=== PATIENT | female | born 1995 | race Caucasian/White ===

== ENCOUNTER 2024-12-25 08:22 | Inpatient (IN) ==
[2024-12-25] MEDS ORDERED: CALCIUM CARBONATE 500 MG CHEWABLE TAB PO PRN (08:33)
--- NOTE | 2024-12-25 08:37 | History & Physical Report ---
Date of Service December 25, 2024 Assessment & Plan (1) Status post fall: Plan: patient is a 29-year-old -0-2-0 at 39 weeks of gestation who fell on ice onto her back and elbows this morning at 6 AM, has been leaking pinkish fluid since then, Vital signs stable afebrile,With elevated blood pressures, no symptoms, heart rate reassuring, Speculum exam confirmed spontaneous rupture of membranes, Schlusser with irregular contractions patient feels some of them, GBS negative, Plan to admit, monitor, labs, recommended augmentation of contractions with low- dose Pitocin per protocol due to spontaneous rupture of membranes at term, Start p.o. labetalol for elevated blood pressures while waiting for labs, Patient understands all and agrees with plan. (2) with 39 completed weeks gestation: (3) Spontaneous rupture of amniotic membranes: History of Present Illness Chief Complaint: fall Primary Care Provider: NO PCP Patient is a 29-year-old -0-2-0 at 39 weeks of gestation who presented to ER after a fall at 6 a.m. while she was going into her car for work. She is still at on ice and fell on her elbows and then gently on her buttocks. She has not hit her belly. She went into home and started to have pinkish mucousy discharge since then. She saw it on toilet paper as well as in the toilet with her urine. She has been leaking mucousy fluid since then. She also started to feel contractions every 10 to 20 minutes, since fall, pain level is 4 out of 10. Baby has been moving, active. Patient denies headaches, change in vision, nausea vomiting, epigastric or right upper quadrant pain, chest pain, shortness of breath, fever chills. Her has been uncomplicated, GBS negative. Allergies Allergy/AdvReac Type Severity Reaction Status Date / Time No Known Allergies Allergy Unverified 12/25/24 08:43 Home Medications Medication Instructions Recorded Confirmed Type calcium carbonate (Tums) 1 mg PO Q4 PRN Heartburn 12/25/24 12/25/24 History [id number] 1 mg 1 tab PO DAILY vitamin 12/25/24 12/25/24 History tablet Review of Systems as per Subjective / HPI Physical Exam Constitutional: WD/WN, vitals as above well developed, well nourished and comfortable Patient walked into labor and delivery without difficulty. Gastrointestinal (Abdomen): normal bowel sounds, soft, nontender, no hepatosplenomegaly ( Gravid) Genitourinary: normal external appearance Speculum/Bimanual Exam: normal appearance of the vagina ( Pooling pinkish fluid in upper vagina, nitrazine positive, AmniSure +) Manual OB Exam: + cervical dilation 1 cm, + cervical effacement 50% and + station -2 OB Exam Monitor Tracing: + external uterine monitor used and + category I NST reactive bedside ultrasound revealed vertex presentation, placenta anterior looks normal, LOU is 4.3 cm
[2024-12-25] MEDS ORDERED: LIDOCAINE 1% LOCAL 20 ML VIAL INFIL PRN (09:14)
[2024-12-25] MEDS ORDERED: OXYTOCIN 30 UNITS/NSS 30 UNITS/500 ML BAG IV PRN ×2 (09:14→21:03)
[2024-12-25 09:58] LABS: Hematocrit (blood only) 29.2 % (37.0-47.0); Hemoglobin 9.5 g/dl (12.0-16.0); Mean Corpuscular Hemoglobin 25.4 pg (25.0-34.0); Mean Corpuscular Hgb Conc 32.5 g/dL (32.0-36.0); Mean Corpuscular Volume 78.1 fL (80.0-100.0); Mean Platelet Volume 11.2 fL (9.4-12.4); Nucleated RBC # (auto) 0.05 K/uL (0.00-0.12); Nucleated RBC % (auto) 0.5 %; Platelet Count 289 K/uL (130-400); RDW Coefficient of Variation 14.7 % (11.5-14.5); RDW Standard Deviation 41.5 fL (36.4-46.3); Red Blood Count 3.74 M/uL (4.20-5.40); White Blood Count 10.72 K/ul (4.8-10.8)
[2024-12-25 10:10] LABS: Albumin Globulin Ratio 1.1 (0.9-2); Albumin Level 3.3 gm/dl (3.4-5.0); Bilirubin,Total 0.3 mg/dl (0.2-1.0); Calcium 8.7 mg/dl (8.6-10.3); Creatinine Clr Calc Pharmacy 180.7 ml/min; Globulin 2.9 gm/dl (2.5-4.0); Potassium 4.1 mmol/L (3.5-5.1); Total Protein 6.2 gm/dl (6.0-8.3)
[2024-12-25] MEDS: LABETALOL HCL 100 MG TAB PO ONE (10:10)
[2024-12-25] MEDS: LACTATED RINGER'S 1,000 ML IV PRN (10:13)
[2024-12-25] MEDS: OXYTOCIN 30 UNITS/NSS 30 UNITS/500 ML BAG IV PRN (10:17)
[2024-12-25 10:18] LABS: Creatinine Urine Random 75.5 mg/dl; Protein Creatinine Ratio Urine 0.8 (0-0.2); Total Protein Urine Random 61.7 mg/dl (0-11.9)
[2024-12-25 11:15] LABS: INR 0.9 (0.9-1.1); Partial Thromboplastin Ratio 0.9; Partial Thromboplastin Time 24 Seconds (21-31); Prothrombin Time 9.6 Seconds (9.0-12.0)
[2024-12-25 11:23] LABS: Fibrinogen 553 mg/dl (184-400)
[2024-12-25] MEDS ORDERED: ROPIVACAINE 0.5% PF 5 MG/ML 20 ML VIAL EPI PRN (12:28)
[2024-12-25] MEDS ORDERED: NALBUPHINE HCL INJ 10 MG/ML AMP IV PRN (12:28)
[2024-12-25] MEDS ORDERED: NALOXONE HCL 1 MG in SODIUM CHLORIDE 0.9% 1,000 ML IV PRN (12:28)
[2024-12-25] MEDS ORDERED: ePHEDrine sulfate 50 MG/ML AMP IV PRN (12:28)
[2024-12-25] MEDS ORDERED: SODIUM CHLORIDE 0.9% PF INJ 10 ML VIAL EPI PRN (12:28)
[2024-12-25] MEDS ORDERED: diphenhydrAMINE 50 MG/ML VIAL IV PRN (12:28)
[2024-12-25] MEDS ORDERED: NALOXONE HCL 0.4 MG/1 ML VIAL/CARP IV PRN (12:28)
[2024-12-25] MEDS ORDERED: LIDOCAINE 2% MPF LOCAL 5 ML VIAL EPI PRN (12:28)
--- NOTE | 2024-12-25 12:28 | Anesthesiology Consultation ---
Date of Service December 25, 2024 Assessment & Plan (1) Encounter for pre-operative examination: Chart Review Chart Review: Patient NOT seen in Pre Admission Testing and Acceptable Risk for Labor Epidural Consults Requested none History Height/Weight Height: 5 ft 5 in Weight: 88.451 kg Allergies Allergy/AdvReac Type Severity Reaction Status Date / Time No Known Allergies Allergy Unverified 12/25/24 08:43 Medications Home Medications Medication Instructions Recorded Confirmed Last Taken calcium carbonate (Tums) 1 mg PO Q4 PRN Heartburn 12/25/24 12/25/24 12/24/24 21:00 [id number]-Em-FA 1 mg 1 tab PO DAILY vitamin 12/25/24 12/25/24 11/24/24 07:00 tablet Active Medications Generic Name Dose Route Start Last Admin Trade Name Freq PRN Reason Stop Dose Admin Lactated Ringer's 1,000 mls @ 125 mls/hr 12/25/24 09:14 12/25/24 10:13 Lr IV 12/26/24 09:13 125 mls/hr .Q8H PRN Administration L&D Protocol Protocol Oxytocin 30 units in 500 mls @ 8 mls/hr 12/25/24 09:22 12/25/24 12:00 Pitocin 30 Units/Nss IV 12/27/24 09:21 0.48 units/hr .Q24H PRN 8 mls/hr Labor Induction/Augmentation Titration Protocol 0.48 UNITS/HR Social History Smoking Status: Former smoker Hx Alcohol Use: Yes Alcohol type: wine alcohol intake frequency: holidays/special occasions only Hx Substance Use: No substance use type: does not use Physical Exam Vital Signs Last Vital Signs Temp 98.2 F 12/25/24 12:05 Pulse 85 12/25/24 12:26 Resp 18 12/25/24 12:05 BP 141/91 H 12/25/24 12:18 Pulse Ox 98 12/25/24 12:26 Testing Laboratory Results 12/25/24 09:33 12/25/24 09:33 PT 9.6 Seconds (9.0-12.0) 12/25/24 09:33 INR 0.9 (0.9-1.1) 12/25/24 09:33 APTT 24 Seconds (21-31) 12/25/24 09:33 Blood Type A Positive 12/25/24:33 Antibody Screen NEGATIVE 12/25/24:33
[2024-12-25] MEDS: LIDOCAINE 2%/EPINEPHRINE 1:200,000 20 ML PF ONE (12:40)
[2024-12-25] MEDS: BUPIVACAINE 0.25% PF 30 ML VIAL ONE (12:40)
[2024-12-25] MEDS: fentaNYL citrate PF 100 MCG/2 ML VIAL ONE (12:40)
[2024-12-25] MEDS: fentANYL 2 MCG/ML BUPIVacaine 0.125%-NSS 100ML BAG ONE (12:46)
[2024-12-25] MEDS: SODIUM CHLORIDE 0.9% PF INJ 10 ML VIAL EPI STA (13:00)
[2024-12-25] MEDS: LIDOCAINE 2%/EPINEPHRINE 1:200,000 20 ML PF EPI STA (13:00)
[2024-12-25] MEDS: fentaNYL citrate PF 100 MCG/2 ML VIAL EPI STA (13:01)
[2024-12-25] MEDS: SODIUM CHLORIDE 0.9% PF INJ 10 ML VIAL ONE (13:01)
[2024-12-25] MEDS: BUPIVACAINE 0.25% PF 30 ML VIAL EPI STA (13:01)
--- OUTSIDE RECORDS SUMMARY | 2024-12-25 13:31 | External Medical Summary | Summary of Care ---
Author Name Unknown Organization [facility] [address] [facility] [facility] [address] Phone [phone] Care Team Providers Care Shot Core Drill Operator Name Role Phone Unavailable Primary Care Provider Unavailabl e Reason for Visit * Reason Comments Return Visit Encounter Details Date Type Department Care Team (Late st Contact Info) Description 12/07/2024 10:30 AM EST Office Visit Gynecology/Obstetri crystal Neves [address] [facility] [place] [address] Margoth Ernst PA-C [address] [place] [phone] Nurse [facility] [place] [address] [place] [address] Encounter for supervision of other normal , unspecified trimester*; Health counseling Allergies No known active allergiesdocumented as of this encounter (statuses as of 12/07/2024) Medications Prochlorperazine Maleate 5 MG Oral Tablet (Compazine) TAKE 1 TAB BY MOUTH 3 TIMES DAILY NEEDED FOR NAUSEA/VOMITING . 06/07/20 24 Active Forte Oral Tablet Take by mouth. Act allan Ondansetron 4 MG Oral Tablet Disintegrating (Zofran) Place 1 Tablet on tongue every 8 hours as needed for Nausea. dissolve on tongue. 40 Tablet 2 06/28/20 24 Active Promethazine HCl 25 MG Rectal Suppository (Phenergan)Indicat ions:Nausea and vomiting during Administer 1 Suppository into the rectum every 6 hours as needed for Nausea. 12 Each 07/14/20 Active Additional Information Patient not taking.Reported on 08/11/2024 Vitamin B-6 50 MG Oral Tablet Take 0.5 Tablets by mouth 3 times a day as needed for Nausea. 30 Tablet 3 07/14/20 24 Active documented as of this encounter (statuses as of 12/07/2024) Active Problems Problem Noted Date Diagnosed Date Food insecurity 08/28/2024 Overview: Per [facility] Protocol Health counseling 08/11/2024 Overview (12/07/2024): Problem Action Taken Date entered Entered by Date resolved Need for food assistance referred to [facility] and local food crocker 08/11/2024 Olivia Schultz RN 08/11/2024 Problem Action Taken Date entered Entered by Date resolved Current needs or questions Patient denies having any current needs or questions 09/13/2024 Allison Alexander RN 09/13/2024 Problem Action Taken Date entered Entered by Date resolved Third trimester Education complete 10/17/2024 Kath Simon RN 10/17/2024 Problem Action Taken Date entered Entered by Date resolved Current needs or questions Patient denies having any current needs or questions 11/09/2024 Allison Alexander RN 11/09/2024 Problem Action Taken Date entered Entered by Date resolved Current needs or questions Patient denies having any current needs or questions 11/24/2024 Allison Alexander RN 11/24/2024 Problem Action Taken Date entered Entered by Date resolved Current needs or questions Patient denies having any current needs or questions 12/07/2024 Allison Alexander RN 12/07/2024 Encounter for supervision of other normal , unspecified trimester 06/13/2024 Health counseling 06/13/2024 Assessment & Plan (06/13/2024 4:32 PM EDT): Problem Action Taken Date entered Entered by Date resolved Dental care Encouraged routine visits 06/13/2024 Allison Alexander RN 06/13/2024 nutrition Due date letter given for WIC 06/13/2024 Allison Alexander RN 06/13/2024 Transportation (states car could break down at any point) [facility] transport discussed 06/13/2024 Allison Alexander RN 06/13/2024 Problem Action Taken Date entered Entered by Date resolved 1st Referral sent to [facility] 06/13/2024 Allison Alexander RN 06/13/2024 Estimated Date of Delivery Comme nts Yes 01/01/2025 Based on last me nstrual period of 03/27/2024 (Exact Date) documented as of this encounter (statuses as of 12/07/2024) Social History Tobacco Use Types Packs/Day Years Used Date Smoking Tobacco: Former Cigarettes Smokeless Tobacco: Never Alcohol Use Standard Drinks/Week Comments Not Currently 0 (1 standard drink = 0.6 oz pur e alcohol) Hunger Vital Sign Answer Date Recorded Within the past 12 months, y ou worried that your food would run out before you got the money to buy more. Sometimes true Within the past 12 months, t he food you bought just didn't last and you didn't have money to get more. Sometimes true [place] Depression Scale Answer Date Recorded [place] Depression Scale Total 6 11/09/2024 The thought of harming myself has occurred to me . Never 11/09/2024 Childcare Answer Date Recorded Do you feel overwhelmed with taking care of a child, family member or friend? No 07/31/2024 Does your family need help f inding childcare? (Household - for ages 0-17 years) Not on file 07/31/2024 Clothing Answer Date Recorded Have you been unable to get clothing when it was really needed? No 07/31/2024 Is your family able to get c lothes or diapers when needed? (Household - for ages 0-17 years) Not on file 07/31/2024 Personal Safety Answer Date Recorded Do you feel unsafe or have concerns for your saf ety? No 07/31/2024 Do you have concerns for you r family's safety? (Household - for ages 0-17 years) Not on file 07/31/2024 Utilities Answer Date Recorded Do you have trouble paying y our heating, water, or electric bill? No 07/31/2024 Is your family able to pay t he heat, water, or electric bill? (Household - for ages 0-17 years) Not on file 07/31/2024 Does your family have access to good internet? (Household - for ages 0-17 years) Not on file 07/31/2024 Employment Status Answer Date Recorded Are you unemployed or without regular income? No 07/31/2024 Does the household have a re gular source of income? (Household - for ages 0-17 years) Not on file 07/31/2024 Social Connections Answer Date Recorded How often do you feel lonely or isolated from th ose around you? Rarely 07/31/2024 Financial Resource Strain Answer Date R ecorded Do you have any trouble payi ng for your medications, or do you think you might in the future? No 07/31/2024 Does your family have troubl e paying for medicine? (Household - for ages 0-17 years) Not on file 07/31/2024 Transportation Needs Answer Date Record ed Do you have trouble getting a ride to medical visits or work? (Adult - for ages 18 years and over) Not on file 07/31/2024 Does your family have a hard time getting a ride to doctors visits? (Household - for ages 0-17 years) Not on file 07/31/2024 Has lack of transportation k ept you from medical appointments, meetings, work, or from getting things needed for daily living? Check all that apply. No 07/31/2024 Do you (or your family) have trouble finding or paying for a ride (transportation)? (Household - for ages 0-17 years) Not on file 07/31/2024 Housing Stability Answer Date Recorded Do you currently live in a s helter or have no steady place to sleep at night? No 07/31/2024 Do you think you are at risk of becoming homeless? (Adult - for ages 18 years and over) Not on file 07/31/2024 Does your family worry about paying for your home or becoming homeless? (Household - for ages 0-17 years) Not on file 0 07/31/2024 Are you homeless or worried that you might be in the future? No 07/31/2024 Are you (or your family) kaitlynn eless or worried that you might be in the future? (Household - for ages 0-17 years) Not on file Food Insecurity Answer Date Recorded Do you need food for this week? No 07/31/2024 Are you able to get enough f ood for your family? (Household - for ages 0-17 years) Not on file 07/31/2024 Does your family need food t his week? (Household - for ages 0-17 years) Not on file 07/31/2024 Do you always have enough fo od for your family? (Household - for ages 0-17 years) Not on file 07/31/2024 Estimated Date of Delivery Comme nts Yes 01/01/2025 Based on last me nstrual period of 03/27/2024 (Exact Date) Sex and Gender Information Value Date Recorded Sex Assigned at Female 05/18/2024 4:34 PM EDT Legal Sex Female 7:18 AM EST Gender Identity Female 05/18/2024 4:34 PM EDT Sexual Orientation Straight 05/18/2024 4: 34 PM EDT documented as of this encounter Last Filed Vital Signs Vital Sign Reading Time Taken Comments Blood Pressure 116/68 12/07/2024 10:59 AM EST Pulse - - Temperature - - Respiratory Rate - - Oxygen Saturation - - Inhaled Oxygen Concentration - - Weight - - Height - - Body Mass Index - - documented in this encounter Progress Notes * Margoth Ernst PA-C - 12/07/2024 11:13 AM EST Kendra Kumar is a 29 year old female here for her routine OB appointment at 36w3d Her Estimated Date of Delivery: 01/01/25 REVIEW OF SYSTEMS She affirms movement. Denies vaginal bleeding, LOF, contractions, chest pain, RUQ pain. PHYSICAL EXAM Filed Vitals: 12/07/24 1059 BP: 116/68 +FHT 150s. Acceleration auscultated into the 170s, lasting 30 seconds with return to baseline. Fundal height 36 cm Position: cephalic GBS swab collected. Director Of Field Coordination Documentation Patient offered barrel endshaker adjuster and accepted. Name of barrel endshaker adjuster: Corina Ann LPN. ASSESSMENT/PLAN Encounter for supervision of other normal , unspecified trimester (Primary) - GROUP B STREP CULTURE/PCR; Future; Expected date: 12/07/2024 Health counseling Supervision of - GBS swab collected today - labor precautions and kick counts reviewed RTO in 1 week Margoth Ernst PA-C 12/07/2024 documented in this encounter Nursing Notes * Allison Alexander RN - 12/07/2024 11:06 AM EST Patient seen by [facility] Hand Assembler. * Jennifer Emmanuel LPN - 12/07/2024 10:58 AM EST 36w3d Needs gbs today documented in this encounter Plan of Treatment Upcoming Encounters Date Type Department Care Team (Late st Contact Info) Description 12/14/2024 2:45 PM EST Office Visit Gynecology/Obstetrics Shawn Neves [address] [place] [phone] Alvin Hutton MD [address] [place] [phone] Nurse [facility] [place] [address] [place] [phone] Pending Results Name Type Priority Associated Diagnoses Date /Time GROUP B STREP CULTURE/PCR Lab Routine Encounter for supervision of other normal , unspecified trimester 12/07/2024 11:34 AM EST Scheduled Orders Name Type Priority Associated Diagnoses Orde r Schedule GROUP B STREP CULTURE/PCR Lab Routine Encounter for supervision of other normal , unspecified trimester Expected: 12/07/2024, Expires: 12/07/2025 Health Maintenance Due Date Last Done Comments Depression Screening 2006 Hepatitis B Vaccine (1 of 3 - 19+ 3-dose series) 2013 DTap/Tdap Vaccines (2 - Td o r Tdap) 10/12/2021 10/12/2011 COVID-19 Vaccine (1 - 2023-2 5 season) 2024 Influenza Vaccine (FLU shot) (#1) 2024 HPV/Co-Test 2024 Cervical Cancer Screening 06/13/2027 Pap Smear 06/13/2027 06/13/2024 HPV (Gardasil) Vaccine Aged Out No lo nger eligible based on patient's age to complete this topic MENINGOCOCCAL (MENACTRA/MENVEO) Aged Out No longer eligible based on patient's age to complete this topic Pneumococcal Vaccine: Pediat rics (0 to 5 Years) and At-Risk Patients (6 to 18 Years and 19+ Years) Aged Out No longer eligible b ased on patient's age to complete this topic documented as of this encounter Goals Goal Patient Goal Type Associated Problems Recent Progress Patient-Stated? Author Reminders Care Plan OB Reminders No Mychart, Provider documented as of this encounter Medical Devices Not on filedocumented as of this encounter Visit Diagnoses Diagnosis Encounter for supervision of other normal in first trimester- Primary Nausea and vomiting during Encounter for supervision of other normal , unspecified trimester- Primary Health counseling Other specified counseling documented in this encounter Additional Health Concerns Active Problems Noted Date Diagnosed Date OB Reminders 09/13/2024 documented as of this encounter
--- OUTSIDE RECORDS SUMMARY | 2024-12-25 13:31 | External Medical Summary | Summary of Care ---
Author Name Unknown Organization [facility] Address [address] [facility] [address] Phone [phone] Care Team Providers Care Roll Tension Tester Name Role Phone Unavailable Primary Care Provider Unavailabl e Encounter Details Date Type Department Care Team (Late st Contact Info) Description 12/15/2024 Population Health External Data Unspecified Department Allergies No known active allergiesdocumented as of this encounter (statuses as of 12/15/2024) Medications Prochlorperazine Maleate 5 MG Oral Tablet (Compazine) 06/07/20 24 Active Forte Oral Tablet Take [...] as needed for Nausea. 12 Each 07/14/20 24 Active Vitamin B-6 50 MG Oral Tablet Take 0.5 Tablets by mouth 3 times a day as needed for Nausea. 30 Tablet 3 07/14/20 24 Active documented as of this encounter (statuses as of 12/15/2024) Active Problems Problem Noted Date Diagnosed Date Food insecurity 08/28/2024 Overview: Per [facility] Protocol Health counseling 08/11/2024 Overview (12/14/2024): Problem Action Taken Date entered Entered by Date resolved Need for food assistance referred to [facility] and local food crocker 08/11/2024 Olivia Schultz, DHARA 08/11/2024 Problem Action Taken Date entered Entered [...] or questions 12/07/2024 Allison Alexander RN 12/07/2024 Problem Action Taken Date entered Entered by Date resolved Current needs or questions Patient denies having any current needs or questions 12/14/2024 Juancarlos Bedoya, DHARA 12/14/24 Encounter for supervision of other normal , unspecified trimester 06/13/2024 Health counseling 06/13/2024 Assessment & Plan (06/13/2024 4:32 PM EDT): Problem Action Taken Date entered Entered by Date resolved Dental care Encouraged routine visits 06/13/2024 Allison Alexander RN 06/13/2024 nutrition Due date letter given for [place] 06/13/2024 Allison Alexander RN 06/13/2024 Transportation (states car could break down at any point) [facility] transport discussed 06/13/2024 Allison Alexander RN 06/13/2024 Problem Action Taken Date entered Entered by Date resolved 1st Referral sent to [facility] 06/13/2024 Allison Alexander RN 06/13/2024 Estimated Date of Delivery Comme nts Yes 01/01/2025 Based on last me nstrual period of 03/27/2024 (Exact Date) documented as of this encounter (statuses as of 12/15/2024) Social History Tobacco Use Types Packs/Day Years [...] have money to get more. Sometimes true [place] Depression Scale Answer Date Recorded [place] Depression Scale Total 6 11/09/2024 The thought [...] PM EDT documented as of this encounter Plan of Treatment Upcoming Encounters Date Type Department Care Team (Late st Contact Info) Description 12/21/2024 10:30 AM EST Office Visit Gynecology/Obstetrics Shawn Neves [address] [place] [phone] Alonzo Groves MD [address] [employer] [place] [phone] Nurse [facility] [address] [place] [phone] Health Maintenance Due Date Last Done Comments [...] Patient-Stated? Author Reminders Care Plan OB Reminders Opal Askew Provider documented as of this encounter Medical Devices Not on filedocumented as of this encounter Additional Health Concerns Active Problems Noted Date Diagnosed Date OB Reminders 09/13/2024 documented as of this encounter
--- OUTSIDE RECORDS SUMMARY | 2024-12-25 13:31 | External Medical Summary ---
Author Name Unknown Address Unknown Organization K01:[facility] [address] [place] [address] Laboratory Report Ordering Provider Test Date Status NOEL HUGHES 12/07/2024 11:34:40 Final Observation Date Value Abnormality Reference (Units ) Status Streptococcus agalactiae DNA [Presence] in Specimen by DARLINE with probe detection 12/07/2024 11:34:40 Negative Negative Final No Group B Streptococcus det ected by culture-enhanced PCR (amplified probe). GBS GBSCT - [facility] 12/07/2024 11:34:40 0.0 Final GBS SPCCT - [facility] 12/07/2024 11:34:40 31.7 Final Performing Location [facility] [address] [place] [place] [address]
--- OUTSIDE RECORDS SUMMARY | 2024-12-25 13:31 | External Medical Summary | Summary of Care ---
Author Name Unknown Organization [facility] Address [address] [facility] [address] Phone [phone] Care Team Providers Care Systems Manager Name Role Phone Unavailable Primary Care Provider Unavailabl e Reason for Visit * Reason Comments Return Visit Encounter Details Date Type Department Care Team (Late st Contact Info) Description 12/07/2024 10:30 AM EST Office Visit Gynecology/Obstetri crystal Neves [address] [facility] [place] [address] Margoth Ernst PA-C [address] [place] [address] Nurse [facility] [place] [address] [place] [address] Encounter for supervision of other normal , [...] resolved Need for food assistance referred to [facility] and local food crocker 08/11/2024 Olivia Schultz [...] have money to get more. Sometimes true [place] Depression Scale Answer Date Recorded [place] Depression Scale Total 6 11/09/2024 The thought [...] 36 cm Position: cephalic GBS swab collected. Bd Special Education Teacher Documentation Patient offered supervisor border department and accepted. Name of supervisor border department: Corina Ann LPN. ASSESSMENT/PLAN Encounter for supervision [...] 12/07/2024 11:06 AM EST Patient seen by [facility] Insurance Claims Representative. * Jennifer Emmanuel LPN - 12/07/2024 10:58 AM EST 36w3d Needs gbs today documented in this encounter Plan of Treatment Upcoming Encounters Date Type Department Care Team (Late st Contact Info) Description 12/14/2024 2:45 PM EST Office Visit Gynecology/Obstetrics Shawn Neves [address] [place] [phone] Alvin Hutton MD [address] [place] [address] Nurse [facility] [place] [address] [place] [phone] Pending Results Name Type Priority Associated Diagnoses [...]
--- OUTSIDE RECORDS SUMMARY | 2024-12-25 13:31 | External Medical Summary | Summary of Care ---
Author Name Unknown Organization [facility] Address [address] [place] [address] Phone [phone] Care Team Providers Care Coal Unloader Name Role Phone Unavailable Primary Care Provider Unavailabl e Encounter Details Date Type Department Care Team (Late st Contact Info) Description 12/04/2024 Population Health External Data Unspecified Department Allergies No known active allergiesdocumented as of this encounter (statuses as of 12/04/2024) Medications Prochlorperazine Maleate 5 MG Oral Tablet [...] as of this encounter (statuses as of 12/04/2024) Active Problems Problem Noted Date Diagnosed Date Food insecurity 08/28/2024 Overview: Per [facility] Protocol Health counseling 08/11/2024 Overview (11/24/2024): Problem Action Taken Date entered Entered by Date resolved Need for food assistance referred to [facility] and local food crocker 08/11/2024 Olivia Schultz, [...] or questions 11/24/2024 Allison Alexander RN 11/24/2024 Encounter for supervision of other normal , unspecified trimester 06/13/2024 Health counseling 06/13/2024 Assessment & Plan (06/13/2024 4:32 PM EDT): Problem Action Taken Date entered Entered by Date resolved Dental care Encouraged routine visits 06/13/2024 Allison Alexander RN 06/13/2024 nutrition Due date letter given for [facility] 06/13/2024 Allison Alexander RN 06/13/2024 Transportation (states car could break down at any point) [facility] transport discussed 06/13/2024 Allison Alexander RN 06/13/2024 Problem Action Taken Date entered Entered by Date resolved 1st Referral sent to [facility] 06/13/2024 Allison Alexander RN 06/13/2024 Estimated Date of Delivery Comme nts Yes 01/01/2025 Based on last me nstrual period of 03/27/2024 (Exact Date) documented as of this encounter (statuses as of 12/04/2024) Social History Tobacco Use Types Packs/Day Years [...] have money to get more. Sometimes true [place] Depression Scale Answer Date Recorded [place] Depression Scale Total 6 11/09/2024 The thought [...] Description 12/07/2024 10:30 AM EST Office Visit Gynecology/Obstetrics [facility] [address] [place] [phone] Margoth Ernst PA-C [address] [place] [address] Nurse [facility] Return Bryan [address] [place] [address] Health Maintenance Due Date Last Done Comments Depression Screening 2006 Hepatitis B Vaccine (1 of 3 - 19+ 3-dose series) 2013 DTap/Tdap Vaccines (2 - Td o r Tdap) 10/12/2021 10/12/2011 COVID-19 Vaccine ( - 2023-2 5 season) 2024 Influenza Vaccine [...]
--- OUTSIDE RECORDS SUMMARY | 2024-12-25 13:31 | External Medical Summary | Summary of Care ---
Author Name Unknown Organization [facility] Address [address] [facility] [place] [address] Phone [phone] Care Team Providers Care Operations Management Trainee Name Role Phone Unavailable Primary Care Provider Unavailabl e Reason for Visit * Reason Comments Return Visit Encounter Details Date Type Department Care Team (Late st Contact Info) Description 12/14/2024 2:45 PM EST Office Visit Gynecology/Obstetri crystal Neves [address] [facility] [place] [address] Alvin Hutton MD [address] [place] [address] Nurse [facility] Return Bryan [address] [place] [address] Encounter for supervision of other normal , [...] resolved Need for food assistance referred to [facility] and local food crocker 08/11/2024 Olivia Schultz [...] car could break down at any point) [facility] transport discussed 06/13/2024 Allison Alexander RN 06/13/2024 [...] have money to get more. Sometimes true [place] Depression Scale Answer Date Recorded [place] Depression Scale Total 6 11/09/2024 The thought [...] Sign Reading Time Taken Comments Blood Pressure 120/70 12/14/2024 2:49 PM EST Pulse - - Temperature - - Respiratory Rate - - Oxygen Saturation - - Inhaled Oxygen Concentration - - Weight 88.5 kg (195 lb) 12/14/2024 2:49 PM EST Height 165.1 cm (5' 5") 12/14/2024 2:49 PM EST Body Mass Index 32.45 12/14/2024 2:49 PM EST documented in this encounter Progress Notes * Alvin Hutton MD - 12/14/2024 2:55 PM EST Pt doing well No complaints RTC 1 week * Jennifer Emmanuel LPN - 12/14/2024 2:49 PM EST 37w3d Denies any concerns documented in this encounter Nursing Notes * Juancarlos Bedoya RN - 12/14/2024 3:00 PM EST Patient seen by [facility] Machine Inspector. Patient denies any questions or concerns. documented in this encounter Plan of Treatment Upcoming Encounters Date Type Department Care Team (Late st Contact Info) Description 12/21/2024 10:30 AM EST Office Visit Gynecology/Obstetrics Shawn Neves [address] [place] [address] Alonzo Groves MD [address] [place] [phone] Nurse [facility] Return Bryan [address] [place] [address] Health Maintenance Due Date Last Done Comments Depression Screening 2006 Hepatitis B Vaccine (1 of 3 - 19+ 3-dose series) 2013 DTap/Tdap Vaccines (2 - Td o r Tdap) 10/12/2021 10/12/2011 COVID-19 Vaccine (2023-2 5 season) 2024 Influenza Vaccine (FLU shot) [...]
--- OUTSIDE RECORDS SUMMARY | 2024-12-25 13:31 | External Medical Summary | Summary of Care ---
Author Name Unknown Organization [facility] Address [address] [facility] [address] Phone [phone] Care Team Providers Care Furnace Operator Name Role Phone Unavailable Primary Care Provider Unavailabl e Encounter Details Date Type Department Care Team (Late st Contact Info) Description 12/11/2024 Telephone Gynecology/Obstetrics [facility] [address] [place] [address] Margoth Ernst PA-C [address] [place] [phone] Allergies No known active allergiesdocumented as of this encounter (statuses as of 12/20/2024) Medications Prochlorperazine Maleate 5 MG Oral Tablet [...] as of this encounter (statuses as of 12/20/2024) Active Problems Problem Noted Date Diagnosed Date Food insecurity 08/28/2024 Overview: Per [facility] Protocol Health counseling 08/11/2024 Overview (12/14/2024): Problem Action Taken Date entered Entered by Date resolved Need for food assistance referred to [facility] and local food crocker 08/11/2024 Olivia [...] 06/13/2024 nutrition Due date letter given for [facility] 06/13/2024 Allison Alexander RN 06/13/2024 Transportation (states car could break down at any point) [facility] transport discussed 06/13/2024 Allison Alexander RN 06/13/2024 Problem Action Taken Date entered Entered by Date resolved 1st Referral sent to [facility] 06/13/2024 Allison Alexander RN 06/13/2024 Estimated Date of Delivery Comme nts Yes 01/01/2025 Based on last me nstrual period of 03/27/2024 (Exact Date) documented as of this encounter (statuses as of 12/20/2024) Social History Tobacco Use Types Packs/Day Years [...] have money to get more. Sometimes true [place] Depression Scale Answer Date Recorded [place] Depression Scale Total 6 11/09/2024 The thought [...] PM EDT documented as of this encounter Miscellaneous Notes * Telephone Encounter - Corina Ann LPN - 12/11/2024 10:00 AM EST ----- Message from Margoth Ernst sent at 12/11/2024 8:00 AM EST ----- Please inform patient her GBS culture resulted negative. Thanks! Margoth Ernst PA-C documented in this encounter Plan of Treatment Upcoming Encounters Date Type Department Care Team (Late st Contact Info) Description 12/21/2024 10:30 AM EST Office Visit Gynecology/Obstetrics Shawn Neves [address] [place] [phone] Alonzo Groves MD [address] [place] [phone] Nurse [facility] Return Bryan [address] [place] [address] Health Maintenance Due Date Last Done Comments [...] Author Reminders Care Plan OB Reminders No Jamilah, Provider documented as of this encounter Medical Devices Not on filedocumented as of this encounter Additional Health Concerns Active Problems Noted Date Diagnosed Date OB Reminders 09/13/2024 documented as of this encounter
--- NOTE | 2024-12-25 13:32 | Obstetrical Progress Note ---
Date of Service December 25, 2024 Assessment & Plan Admission and Anticipated Discharge Date Admission Date: December 25, 2024 Subjective Patient is reevaluated. She received epidural for pain. Still awaiting for complete relief of pain. heart rate category 1, Dunn[place] with contractions every 2 to 3 minutes, oxytocin is at 10 milliunits/min, Vaginal exam, cervix is 3 to 4 cm dilated, 80%, head at -2, Continue to monitor closely. Results & Data Vital Signs (Past 12 Hours) Vital Signs Temp Pulse Resp BP Pulse Ox 12/25/24 13:26 97 12/25/24 13:26 76 12/25/24 13:21 97 12/25/24 13:21 81 12/25/24 13:21 144/82 H 12/25/24 13:16 96 12/25/24 13:16 87 12/25/24 13:11 97 12/25/24 13:11 90 12/25/24 13:06 94 12/25/24 13:06 88 12/25/24 13:05 16 12/25/24 13:05 36.7 C 16 12/25/24 13:04 83 12/25/24 13:04 141/83 H 12/25/24 13:01 94 12/25/24 13:01 83 12/25/24 13:00 94 12/25/24 13:00 86 12/25/24 12:56 96 12/25/24 12:56 81 12/25/24 12:51 98 12/25/24 12:51 89 12/25/24 12:47 83 12/25/24 12:47 131/75 12/25/24 12:46 98 12/25/24 12:46 80 12/25/24 12:44 77 12/25/24 12:44 135/82 12/25/24 12:43 78 12/25/24 12:43 143/78 H 12/25/24 12:41 99 12/25/24 12:41 83 12/25/24 12:41 80 12/25/24 12:41 140/78 12/25/24 12:36 99 12/25/24 12:36 105 H 12/25/24 12:31 100 12/25/24 12:31 86 12/25/24 12:26 98 12/25/24 12:26 85 12/25/24 12:18 36.7 C 12/25/24 12:18 93 H 12/25/24 12:18 141/91 H 12/25/24 12:05 18 12/25/24 12:05 36.8 C 18 12/25/24 11:03 75 12/25/24 11:03 145/89 H 12/25/24 11:02 80 12/25/24 11:02 160/96 H 12/25/24 11:00 18 12/25/24 11:00 36.8 C 18 12/25/24 10:09 18 12/25/24 10:09 36.8 C 18 12/25/24 10:09 75 12/25/24 10:09 139/97 12/25/24 09:20 36.8 C 78 18 139/97 12/25/24 09:12 77 12/25/24 09:12 156/86 H 12/25/24 09:05 87 12/25/24 09:05 149/82 H 12/25/24 09:04 78 12/25/24 09:04 181/85 H 12/25/24 08:53 77 12/25/24 08:53 163/102 H 12/25/24 08:38 78 139/97
--- OUTSIDE RECORDS SUMMARY | 2024-12-25 13:32 | External Medical Summary ---
Author Name Unknown Address Unknown Organization [id number]:LABORATORY [facility] [place] - [facility] [address] [facility] [address] [facility] [address] Laboratory Report Ordering Provider Test Date Status SLAVA HIGGINS 10/17/2024 10:06:53 Final Observation Date Value Abnormality Reference (Units ) Status Retic, % (auto) 10/17/2024 10:06:53 1.08 0.80-1.90 (%) Final Reticulocytes, Absolute 10/17/2024 10:06:53 41.6 31.3-100.1 (K/uL) Final Reticulocyte fraction, immature 10/17/2024 10:06:53 18.3 2.5-20.6 (%) Final Reticulocyte HGB 10/17/2024 10:06:53 26.2 Below low normal 29.7-37.4 (pg) Final Performing Location LABORATORY [facility] [place] - [address] [facility] [address]
--- OUTSIDE RECORDS SUMMARY | 2024-12-25 13:32 | External Medical Summary ---
Author Name Unknown Address Unknown Organization [id number]:[place] [place] [address] [facility] [address] Laboratory Report Ordering Provider Test Date Status SLAVA HIGGINS 10/17/2024 10:06:53 Final Observation Date Value Abnormality Reference (Units ) Status Folic Acid 10/17/2024 10:06:53 11.9 >4.5 (ng/ mL) Final Performing Location [facility] [place] [address] [facility] [address]
--- OUTSIDE RECORDS SUMMARY | 2024-12-25 13:32 | External Medical Summary ---
Author Name Unknown Address Unknown Organization [id number]:[facility] [facility] [place] [address] [place] [address] Laboratory Report Ordering Provider Test Date Status SLAVA HIGGINS 10/17/2024 10:06:53 Final Observation Date Value Abnormality Reference (Units ) Status Vitamin B12 10/17/2024 10:06:53 982 [id number] (pg/mL) Final Performing Location [facility] [place] [address] [place] [address]
--- OUTSIDE RECORDS SUMMARY | 2024-12-25 13:32 | External Medical Summary | Summary of Care ---
Author Name Unknown Organization [facility] Address [address] [place] [address] Phone [phone] Care Team Providers Care Systems Lead Name Role Phone Unavailable Primary Care Provider Unavailabl e Encounter Details Date Type Department Care Team (Late st Contact Info) Description 10/18/2024 Population Health External Data Unspecified Department Allergies No known active allergiesdocumented as of this encounter (statuses as of 10/18/2024) Medications Prochlorperazine Maleate 5 MG Oral Tablet [...] as of this encounter (statuses as of 10/18/2024) Active Problems Problem Noted Date Diagnosed Date Food insecurity 08/28/2024 Overview: Per [facility] Protocol Health counseling 08/11/2024 Overview (10/17/2024): Problem Action Taken Date entered Entered by Date resolved Need for food assistance referred to [facility] and local food crocker 08/11/2024 Olivia Schultz RN 08/11/2024 Problem Action Taken Date entered Entered by Date resolved Current needs or questions Patient denies having any current needs or questions 09/13/2024 Allison Alexander RN 09/13/2024 Problem Action Taken Date entered Entered by Date resolved Third trimester Education complete 10/17/2024 Kath Simon RN 10/17/2024 Encounter for supervision of other normal , unspecified trimester 06/13/2024 Health counseling 06/13/2024 Assessment & Plan (06/13/2024 4:32 PM EDT): Problem Action Taken Date entered Entered by Date resolved Dental care Encouraged routine visits 06/13/2024 Allison Alexander RN 06/13/2024 nutrition Due date letter given for [facility] 06/13/2024 Allison Alexander RN 06/13/2024 Transportation (states car could break down at any point) [facility] transport discussed 06/13/2024 Allison Alexander RN 06/13/2024 Problem Action Taken Date entered Entered by Date resolved 1st Referral sent to [facility] 06/13/2024 Allison Alexander RN 06/13/2024 Estimated Date of Delivery Comme nts Yes 01/01/2025 Based on last me nstrual period of 03/27/2024 (Exact Date) documented as of this encounter (statuses as of 10/18/2024) Social History Tobacco Use Types Packs/Day Years [...] have money to get more. Sometimes true [place] Depression Scale Answer Date Recorded [place] Depression Scale Total 6 06/13/2024 The thought of harming myself has occurred to me . Never 06/13/2024 Childcare Answer Date Recorded Do you feel [...] Care Team (Late st Contact Info) Description 11/07/2024 8:15 AM EST Office Visit Gynecology/Obstetrics Shawn Neves [address] [place] [address] Luciana Flaherty CRNP [address] [place] [address] Health Maintenance Due Date Last Done Comments [...] 5 Years) and At-Risk Patients (6 to 64 Years) Aged Out No longer eligi ble based on patient's age to complete this [...]
--- OUTSIDE RECORDS SUMMARY | 2024-12-25 13:32 | External Medical Summary | Summary of Care ---
Author Name Unknown Organization [facility] Address [address] [place] [facility] [address] Phone [phone] Care Team Providers Care Rivet Flunky Name Role Phone Unavailable Primary Care Provider Unavailabl e Reason for Visit * Reason Comments Return Visit Encounter Details Date Type Department Care Team (Late st Contact Info) Description 10/17/2024 8:15 AM EST Office Visit Gynecology/Obstetri crystal Neves [address] [facility] [place] [address] Alvin Hutton MD [address] [place] [address] Nurse [facility] Return Bryan [address] [facility] [place] [address] Encounter for supervision of other normal , unspecified trimester*; Health counseling Allergies No known active allergiesdocumented as of this encounter (statuses as of 10/17/2024) Medications Prochlorperazine Maleate 5 MG Oral Tablet [...] for Nausea. 12 Each 07/14/20 24 Active Additional Information Patient not taking.Reported on 08/11/2024 Vitamin B-6 50 MG Oral Tablet Take 0.5 Tablets by mouth 3 times a day as needed for Nausea. 30 Tablet 3 07/14/20 24 Active documented as of this encounter (statuses as of 10/17/2024) Active Problems Problem Noted Date Diagnosed Date Food insecurity 08/28/2024 Overview: Per [facility] Protocol Health counseling 08/11/2024 Overview (10/17/2024): Problem Action Taken Date entered Entered by Date resolved Need for food assistance referred to [facility] and local food crocker 08/11/2024 Olivia [...] 06/13/2024 nutrition Due date letter given for [facility] 06/13/2024 Allison Alexander RN 06/13/2024 Transportation (states car could break down at any point) [facility] transport discussed 06/13/2024 Allison Alexander RN 06/13/2024 Problem Action Taken Date entered Entered by Date resolved 1st Referral sent to [facility] 06/13/2024 Allison Alexander RN 06/13/2024 Estimated Date of Delivery Comme nts Yes 01/01/2025 Based on last me nstrual period of 03/27/2024 (Exact Date) documented as of this encounter (statuses as of 10/17/2024) Social History Tobacco Use Types Packs/Day Years [...] have money to get more. Sometimes true [place] Depression Scale Answer Date Recorded [place] Depression Scale Total 6 06/13/2024 The thought [...] Sign Reading Time Taken Comments Blood Pressure - - Pulse - - Temperature - - Respiratory Rate - - Oxygen Saturation - - Inhaled Oxygen Concentration - - Weight 86.2 kg (190 lb) 10/17/2024 8:31 AM EST Height - - Body Mass Index 31.62 09/13/2024 9:12 AM EDT documented in this encounter Progress Notes * Alvin Hutton MD - 10/17/2024 8:43 AM EST Pt doing well No complaints GTT pending RTc 3 weeks * Jennifer Emmanuel LPN - 10/17/2024 8:31 AM EST 29w3d Needs to do glucola today documented in this encounter Nursing Notes * Kath Simon RN - 10/17/2024 8:37 AM EST Patient seen by [facility] Signal Inspector. The [facility] Coordinator addressed thefollowing concerns third trimester education. documented in this encounter Plan of Treatment Upcoming Encounters Date Type Department Care Team (Late st Contact Info) Description 11/07/2024 8:15 AM EST Office Visit Gynecology/Obstetrics Charlesmary Neves [address] [place] [address] Luciana Flaherty CRNP [address] [place] [address] Scheduled Orders Name Type Priority Associated Diagnoses Orde r Schedule 50-G GESTATIONAL GLUCOSE, 1 HOUR Lab Routine Encounter for supervision of other normal , unspecified trimester Expected: 10/17/2024, Expires: 10/17/2025 CBC WITH WBC DIFFERENTIAL AND ANEMIA REFLEX WORKUP Lab Routine Encounter for supervision of other normal , unspecified trimester Expected: 10/17/2024, Expires: 10/17/2025 SYPHILIS ANTIBODY SCREEN WITH REFLEX TO RPR Lab Routine Encounter for supervision of other normal , unspecified trimester Expected: 10/17/2024, Expires: 10/17/2025 Health Maintenance Due Date Last Done Comments [...]
--- OUTSIDE RECORDS SUMMARY | 2024-12-25 13:32 | External Medical Summary | Summary of Care ---
Author Name Unknown Organization [facility] Address [address] [facility] [place] [address] Phone [phone] Care Team Providers Care Support Services Coordinator Name Role Phone Unavailable Primary Care Provider Unavailabl e Reason for Visit * Reason Comments Return Visit Encounter Details Date Type Department Care Team (Late st Contact Info) Description 11/24/2024 8:30 AM EST Office Visit Gynecology/Obstetri crystal Neves [address] [facility] [place] [address] Alvin Hutton MD [address] [place] [address] Nurse [facility] Return Bryan [address] [place] [address] Encounter for supervision of other normal , unspecified trimester*; Health counseling Allergies No known active allergiesdocumented as of this encounter (statuses as of 11/24/2024) Medications Prochlorperazine Maleate 5 MG Oral Tablet [...] as of this encounter (statuses as of 11/24/2024) Active Problems Problem Noted Date Diagnosed Date Food insecurity 08/28/2024 Overview: Per [facility] Protocol Health counseling 08/11/2024 Overview (11/24/2024): Problem Action Taken Date entered Entered by Date resolved Need for food assistance referred to [facility] and local food crocker 08/11/2024 Olivia Schultz [...] 06/13/2024 nutrition Due date letter given for [facility] 06/13/2024 Allison Alexander RN 06/13/2024 Transportation (states car could break down at any point) [facility] transport discussed 06/13/2024 Allison Alexander RN 06/13/2024 Problem Action Taken Date entered Entered by Date resolved 1st Referral sent to [facility] 06/13/2024 Allison Alexander RN 06/13/2024 Estimated Date of Delivery Comme nts Yes 01/01/2025 Based on last me nstrual period of 03/27/2024 (Exact Date) documented as of this encounter (statuses as of 11/24/2024) Social History Tobacco Use Types Packs/Day Years [...] have money to get more. Sometimes true [place] Depression Scale Answer Date Recorded [place] Depression Scale Total 6 11/09/2024 The thought [...] Sign Reading Time Taken Comments Blood Pressure 108/70 11/24/2024 9:06 AM EST Pulse - - Temperature - - Respiratory Rate - - Oxygen Saturation - - Inhaled Oxygen Concentration - - Weight 87.5 kg (193 lb) 11/24/2024 9:06 AM EST Height 165.1 cm (5' 5") 11/24/2024 9:06 AM EST Body Mass Index 32.12 11/24/2024 9:06 AM EST documented in this encounter Progress Notes * Alvin Hutton MD - 11/24/2024 9:18 AM EST Pt doing well No complaints RTC 2 weeks * Jennifer Emmanuel LPN - 11/24/2024 9:06 AM EST 34w4d Denies any concerns documented in this encounter Nursing Notes * Allison Alexander RN - 11/24/2024 9:12 AM EST Patient seen by [facility] Packaging Machine Operator. documented in this encounter Plan of Treatment Upcoming Encounters Date Type Department Care Team (Late st Contact Info) Description 12/07/2024 10:30 AM EST Office Visit Gynecology/Obstetrics Shawn Neves [address] [place] [address] Margoth Ernst PA-C [address] [place] [phone] Nurse [facility] Return Bryan [address] [place] [address] Health Maintenance Due Date Last Done Comments [...]
--- OUTSIDE RECORDS SUMMARY | 2024-12-25 13:32 | External Medical Summary ---
Author Name Unknown Address Unknown Organization K01:LABORATORY [facility] [place] - [address] [facility] [address] Laboratory Report Ordering Provider Test Date Status SLAVA HIGGINS 10/17/2024 10:06:53 Final Observation Date Value Abnormality Reference (Units ) Status Treponema pallidum Ab [Presence] in Serum by Immunoassay 10/17/2024 10:06:53 Nonreactive Nonreactive Final No serologic evidence of syp hilis. No additional testing clinicially indicated at this time. Consider repeat testing in 2-4 weeks if acute or primary syphilis is suspected. Performing Location LABORATORY [facility] [place] - [address] [facility] [address]
--- OUTSIDE RECORDS SUMMARY | 2024-12-25 13:32 | External Medical Summary ---
Author Name Unknown Address Unknown Organization K01:[place] [facility] [place] [address] [place] [address] Laboratory Report Ordering Provider Test Date Status GISELASLAVA STEINBERG 10/17/2024 10:06:53 Final Observation Date Value Abnormality Reference (Units ) Status Ferritin 10/17/2024 10:06:53 21 13-150 (ng /mL) Final Performing Location LABORATORY [facility] - [address] [place] [address]
--- OUTSIDE RECORDS SUMMARY | 2024-12-25 13:32 | External Medical Summary | Summary of Care ---
Author Name Unknown Organization [facility] Address [address] [facility] [place] [address] Phone [phone] Care Team Providers Care Engraver Ornamental Design Name Role Phone Unavailable Primary Care Provider Unavailabl e Reason for Visit * Reason Comments Return Visit Encounter Details Date Type Department Care Team (Late st Contact Info) Description 11/09/2024 8:15 AM EST Office Visit Gynecology/Obstetri crystal Neves [address] [facility] [place] [address] Alonzo Groves MD [address] [place] [phone] Nurse Edinson [facility] Beginnings Return Bryan [address] [place] [address] Encounter for supervision of other normal , unspecified trimester*; Health counseling Allergies No known active allergiesdocumented as of this encounter (statuses as of 11/09/2024) Medications Prochlorperazine Maleate 5 MG Oral Tablet [...] as of this encounter (statuses as of 11/09/2024) Active Problems Problem Noted Date Diagnosed Date Food insecurity 08/28/2024 Overview: Per [facility] Protocol Health counseling 08/11/2024 Overview (11/09/2024): Problem Action Taken Date entered Entered by Date resolved Need for food assistance referred to [facility] and local food [employer] 08/11/2024 Olivia Schultz RN 08/11/2024 Problem Action [...] or questions 11/09/2024 Allison Alexander RN 11/09/2024 Encounter for supervision of other normal , unspecified trimester 06/13/2024 Health counseling 06/13/2024 Assessment & Plan (06/13/2024 4:32 PM EDT): Problem Action Taken Date entered Entered by Date resolved Dental care Encouraged routine visits 06/13/2024 Allison Alexander RN 06/13/2024 nutrition Due date letter given for [facility] 06/13/2024 Allison Alexander RN 06/13/2024 Transportation (states car could break down at any point) [facility] transport discussed 06/13/2024 Allison Alexander RN 06/13/2024 Problem Action Taken Date entered Entered by Date resolved 1st Referral sent to [facility] 06/13/2024 Allison Alexander RN 06/13/2024 Estimated Date of Delivery Comme nts Yes 01/01/2025 Based on last me nstrual period of 03/27/2024 (Exact Date) documented as of this encounter (statuses as of 11/09/2024) Social History Tobacco Use Types Packs/Day Years [...] have money to get more. Sometimes true Palmer Depression Scale Answer Date Recorded Palmer Depression Scale Total 6 06/13/2024 The thought [...] - - Weight 86.2 kg (190 lb) 11/09/2024 8:13 AM EST Height - - Body Mass Index 31.62 09/13/2024 9:12 AM EDT documented in this encounter Progress Notes * Alonzo Groves MD - 11/09/2024 8:29 AM EST Patient is doing well no significant complaints. Patient perceives good movement. * Allison Alexander RN - 11/09/2024 8:14 AM EST Patient seen by [facility] Presser Machine. Denies any concerns. documented in this encounter Plan of Treatment Upcoming Encounters Date Type Department Care Team (Late st Contact Info) Description 11/24/2024 8:30 AM EST Office Visit Gynecology/Obstetrics Shawn Neves [address] [place] [address] Alvin Hutton MD [address] [place] [address] Nurse Edinson [facility] Return Bryan [address] [place] [address] Health Maintenance Due Date Last Done Comments [...] Author Reminders Care Plan OB Reminders No Vazquezt, Provider documented as of this encounter Medical [...]
--- OUTSIDE RECORDS SUMMARY | 2024-12-25 13:32 | External Medical Summary | Summary of Care ---
Author Name Unknown Organization [facility] Address [address] [place] [facility] [place] [address] Phone [phone] Care Team Providers Care Freelance Photographer Name Role Phone Unavailable Primary Care Provider Unavailabl e Reason for Visit * Reason Comments Return Visit Encounter Details Date Type Department Care Team (Late st Contact Info) Description 11/09/2024 8:15 AM EST Office Visit Gynecology/Obstetri crystal Neves [address] [facility] [place] [address] Alonzo Groves MD [address] [place] [phone] Nurse Edinson [facility] Beginnings Return Bryan [address] [place] [address] Encounter for supervision of other normal , [...] Need for food assistance referred to [facility] and local food [employer] 08/11/2024 Olivia Schultz RN 08/11/2024 Problem Action [...] nutrition Due date letter given for [facility] 06/13/2024 Allison Alexander RN 06/13/2024 Transportation (states car could break down at any point) [facility] transport discussed 06/13/2024 Allison Alexander RN 06/13/2024 Problem Action Taken Date entered Entered by Date resolved 1st Referral sent to [facility] 06/13/2024 Allison Alexander RN 06/13/2024 Estimated [...] have money to get more. Sometimes true Stratford Depression Scale Answer Date Recorded Stratford Depression Scale Total 6 06/13/2024 The thought [...] 11/09/2024 8:14 AM EST Patient seen by [facility] Thread Tool Grinder Set Up Operator. Denies any concerns. documented in this encounter Plan of Treatment Upcoming Encounters Date Type Department Care Team (Late st Contact Info) Description 11/24/2024 8:30 AM EST Office Visit Gynecology/Obstetrics Shawn Neves [address] [place] [address] Alvin Hutton MD [address] [place] [address] Nurse Edinson [facility] Return Bryan [address] [place] [address] Health Maintenance Due Date Last Done Comments [...]
--- OUTSIDE RECORDS SUMMARY | 2024-12-25 13:32 | External Medical Summary | Summary of Care ---
Author Name Unknown Organization [facility] Address [address] [place] [address] Phone [phone] Care Team Providers Care Professor Of Biblical Studies Name Role Phone Unavailable Primary Care Provider Unavailabl e Reason for Visit * Reason Comments Outpatient Testing Encounter Details Date Type Department Care Team (Late st Contact Info) Description 10/17/2024 8:00 AM EST Laboratory Laboratory, [facility] [address] [place] [phone] [facility] [address] [place] [address] Encounter for supervision of other normal , unspecified trimester Allergies No known active allergiesdocumented as of [...] car could break down at any point) [facility] transport discussed 06/13/2024 Allison Alexander RN 06/13/2024 Problem Action Taken Date entered Entered by Date resolved 1st Referral sent to [facility] 06/13/2024 Allison Alexander RN 06/13/2024 Estimated Date [...] have money to get more. Sometimes true Garrard Depression Scale Answer Date Recorded Garrard Depression Scale Total 6 06/13/2024 The thought [...] Shawn Neves [address] [place] [address] Luciana Flaherty CRNP [address] [place] [address] Pending Results Name Type Priority Associated Diagnoses Date /Time CBC WITH WBC DIFFERENTIAL AND ANEMIA REFLEX WORKUP Lab Routine Encounter for supervision of other normal , unspecified trimester 10/17/2024 10:06 AM EST SYPHILIS ANTIBODY SCREEN WITH REFLEX TO RPR Lab Routine Encounter for supervision of other normal , unspecified trimester 10/17/2024 10:06 AM EST ANEMIA CBC Lab Routine Encounter for supervision of other normal , unspecified trimester 10/17/2024 10:06 AM EST DIFFERENTIAL, AUTOMATED Lab Routine Encounter for supervision of other normal , unspecified trimester 10/17/2024 10:06 AM EST ANEMIA REFLEX CHEMISTRY HOLD Lab Routine Encounter for supervision of other normal , unspecified trimester 10/17/2024 10:06 AM EST SYPHILIS ANTIBODY SCREEN Lab Routine Encounter for supervision of other normal , unspecified trimester 10/17/2024 10:06 AM EST Health Maintenance Due Date Last Done Comments [...] Not on filedocumented as of this encounter Procedures Procedure Name Priority Date/Time Associated Diagnosis Comments 50-G GESTATIONAL GLUCOSE, 1 HOUR Routine 10/17/2024 10:06 AM EST Encounter for supervision of other normal , unspecified trimester documented in this encounter Results * (ABNORMAL) 50-G GESTATIONAL GLUCOSE, 1 HOUR (10/17/2024 10:06 AM EST) 50-g Gestational Glucose, 1 Hour 132(H) 70 - 129 mg/dL 10/17/2024 10:55 AM EST [facility]10 Blood Venous blood specimen / Unknown Venipuncture / Unknown 10/17/2024 10:06 AM EST 10/17/2024 10:06 AM EST us Alvin Hutton MD LAB BLOOD ORDERABLES Final Resul t [facility] [address] [place] [address] [place] [address] documented in this encounter Visit Diagnoses Diagnosis Encounter for supervision of other normal in first trimester- Primary Nausea and vomiting during Encounter for supervision of other normal , unspecified trimester documented in this encounter Additional Health Concerns Active Problems Noted Date Diagnosed Date OB Reminders 09/13/2024 documented as of this encounter
--- OUTSIDE RECORDS SUMMARY | 2024-12-25 13:32 | External Medical Summary ---
Author Name Unknown Address Unknown Organization K01:[facility] - [address] [place] [address] Laboratory Report Ordering Provider Test Date Status SLAVA HIGGINS 10/17/2024 10:06:53 Final Observation Date Value Abnormality Reference (Units ) Status Iron 10/17/2024 10:06:53 46 33-151 (ug/dL) Final Iron-binding capacity 10/17/2024 10:06:53 444 Above high normal 250-425 (ug/dL) Final Transferrin Sat % 10/17/2024 10:06:53 10 Below low normal 15-55 (%) Final Performing Location [facility] - [address] [place] [address]
--- OUTSIDE RECORDS SUMMARY | 2024-12-25 13:32 | External Medical Summary | Summary of Care ---
Author Name Unknown Organization [facility] Address [address] [place] [facility] [place] [place] [address] Phone [phone] Care Team Providers Care Dairy Technician Name Role Phone Unavailable Primary Care Provider Unavailabl e Reason for Visit * Reason Comments Return Visit Encounter Details Date Type Department Care Team (Late st Contact Info) Description 10/17/2024 8:15 AM EST Office Visit Gynecology/Obstetri crystal Neves [address] [facility] [place] [address] Alvin Hutton MD [address] [place] [address] Nurse Ed[facility] Return Bryan [address] [facility] [place] [address] Encounter for supervision of other normal , [...] resolved Need for food assistance referred to [facility] and local food [employer] 08/11/2024 [...] 06/13/2024 nutrition Due date letter given for [facility] 06/13/2024 Allison Alexander RN 06/13/2024 Transportation (states car could break down at any point) [facility] transport discussed 06/13/2024 Allison Alexander RN 06/13/2024 Problem Action Taken Date entered Entered by Date resolved 1st Referral sent to [facility] 06/13/2024 Allison Alexander RN 06/13/2024 Estimated [...] have money to get more. Sometimes true Troup Depression Scale Answer Date Recorded Troup Depression Scale Total 6 06/13/2024 The thought [...] AM EST Patient seen by [facility] Clinical Faculty. The [facility] Coordinator addressed thefollowing concerns third trimester education. documented in this encounter Plan of Treatment Upcoming Encounters Date Type Department Care Team (Late st Contact Info) Description 11/07/2024 8:15 AM EST Office Visit Gynecology/Obstetrics Charlesmary Neves [address] [place] [phone] Luciana Flaherty CRNP [address] [place] [id number] Scheduled Orders Name Type Priority Associated Diagnoses [...]
--- OUTSIDE RECORDS SUMMARY | 2024-12-25 13:33 | External Medical Summary ---
Author Name Unknown Address Unknown Organization K01:[facility] - [address] [place] [address] Laboratory Report Ordering Provider Test Date Status SLAVA HIGGINS 10/17/2024 10:06:53 Final Observation Date Value Abnormality Reference (Units ) Status WBC, Total 10/17/2024 10:06:53 6.29 4.00-10.8 0 (K/uL) Final RBC 10/17/2024 10:06:53 3.83 3.85-5.15 (M/uL) Final Hemoglobin 10/17/2024 10:06:53 11.4 Below low normal 12 .0-15.3 (g/dL) Final Anemia reflex testing trigge rs on a HGB < 12.0 for Females and HGB < 13.0 for Males in accordance with the WHO Anemia Guidelines
Anemia reflex testing triggers on a HGB < 12.0 for Females and HGB < 13.0 for Males in accordance with the WHO Anemia Guidelines HCT 10/17/2024 10:06:53 35.3 Below low normal 36. 0-45.2 (%) Final MCV 10/17/2024 10:06:53 92.2 81.5-97.5 (fL) Final MCH 10/17/2024 10:06:53 29.8 27.0-34.0 (pg) Final MCHC 10/17/2024 10:06:53 32.3 32.0-36.0 (g/dL) Final RDW 10/17/2024 10:06:53 12.8 11.5-15.5 (%) Final Platelets 10/17/2024 10:06:53 268 140-400 (K /uL) Final MPV 10/17/2024 10:06:53 10.5 6.6-11.1 ( fL) Final Nucleated erythrocytes/100 leukocytes [Ratio] in Blood by Automated count 10/17/2024 10:06:53 0 <=0 (/100 WBCs) Final Performing Location [facility] - [address] [facility] [address]
--- OUTSIDE RECORDS SUMMARY | 2024-12-25 13:33 | External Medical Summary | Summary of Care ---
Author Name Unknown Organization [facility] Address [address] [place] [place] [address] Phone [phone] Care Team Providers Care Web Marketing Strategist Name Role Phone Unavailable Primary Care Provider Unavailabl e Encounter Details Date Type Department Care Team (Late st Contact Info) Description 08/25/2024 Telephone Gynecology/Obstetrics [facility] [address] [facility] [place] [address] Margoth Ernst PA-C [address] [facility] [place] [phone] Allergies No known active allergiesdocumented as of this encounter (statuses as of 08/29/2024) Medications Medication Sig Dispensed Refills Start Date End Date Status Prochlorperazine Maleate 5 MG Oral Tablet (Compazine) TAKE 1 TAB BY MOUTH 3 TIMES DAILY NEEDED FOR NAUSEA/VOMITING. 06/07/2024 Active Forte Oral Tablet Take by mouth. Active Ondansetron 4 MG Oral Tablet Disintegrating (Zofran) Place 1 Tablet on tongue every 8 hours as needed for Nausea. dissolve on tongue. 40 Tablet 2 06/28/2024 Active Promethazine HCl 25 MG Rectal Suppository (Phenergan)Indication s:Nausea and vomiting during Administer 1 Suppository into the rectum every 6 hours as needed for Nausea. 12 Each 07/14/2024 Active Additional Information Patient not taking.Reported on 08/11/2024 Vitamin B-6 50 MG Oral Tablet Take 0.5 Tablets by mouth 3 times a day as needed for Nausea. 30 Tablet 3 07/14/2024 Active documented as of this encounter (statuses as of 08/29/2024) Active Problems Problem Noted Date Diagnosed Date Health counseling 08/11/2024 Overview: Problem Action Taken Date entered Entered by Date resolved Need for food assistance referred to [facility] and local food [employer] 08/11/2024 Olivia Schultz RN 08/11/2024 Encounter for supervision of other normal , unspecified trimester 06/13/2024 Health counseling 06/13/2024 Last Assessment & Plan: Problem Action Taken Date entered Entered by Date resolved Dental care Encouraged routine visits 06/13/2024 Allison Alexander RN 06/13/2024 nutrition Due date letter given for [place] 06/13/2024 Allison Alexander RN 06/13/2024 Transportation (states car could break down at any point) [facility] transport discussed 06/13/2024 Allison Alexander RN 06/13/2024 Problem Action Taken Date entered Entered by Date resolved 1st Referral sent to [facility] 06/13/2024 Allison Alexander RN 06/13/2024 Estimated Date of Delivery Comme nts Yes 01/01/2025 Based on last me nstrual period of 03/27/2024 (Exact Date) documented as of this encounter (statuses as of 08/29/2024) Social History Tobacco Use Types Packs/Day Years [...] have money to get more. Sometimes true Montevideo Depression Scale Answer Date Recorded Montevideo Depression Scale Total 6 06/13/2024 The thought [...] 07/31/2024 Does the household have a re lar source of income? (Household - for ages [...] Assigned at Female 05/18/2024 4:34 PM EDT Gender Identity Female 05/18/2024 4:34 PM EDT Sexual Orientation Straight 05/18/2024 4: 34 PM EDT Job Start Date Occupation Industry Not on file Not on file Not on file documented as of this encounter Miscellaneous Notes * Telephone Encounter - Corina Ann LPN - 08/25/2024 1:04 PM EDT ----- Message from Margoth Ernst sent at 08/25/2024 12:57 PM EDT ----- Covering for Jayda Curiel PA-C. Please inform patient I have reviewed the results of her recent Anatomy scan. Heart rate was 150 bpm. Baby is head down. Fluid levels WNL. Radiology was able to obtain adequate views of the facial profile. Anatomy WNL. Thanks! Margoth Ernst PA-C documented in this encounter Plan of Treatment Upcoming Encounters Date Type Department Care Team (Late st Contact Info) Description 09/08/2024 8:30 AM EDT Office Visit Gynecology/Obstetrics Shawn Neves [address] [place] [address] Luciana Flaherty CRNP [address] [place] [address] Nurse Ed[facility] Return Bryan [address] [place] [address] Health Maintenance Due Date Last Done Comments Depression Screening 2006 Hepatitis B Vaccine (1 of 3 - 19+ 3-dose series) 2013 DTap/Tdap Vaccines (2 - Td o r Tdap) 10/12/2021 10/12/2011 COVID-19 Vaccine (2023-2 5 season) 2024 Influenza Vaccine (FLU shot) (#1) 2024 Pap Smear 06/13/2027 06/13/2024 HPV (Gardasil) Vaccine [...] this topic documented as of this encounter Medical Devices Not on filedocumented as of this encounter
--- OUTSIDE RECORDS SUMMARY | 2024-12-25 13:33 | External Medical Summary ---
Author Name Unknown Address Unknown Organization K0G:[facility] - [address] [place] [address] Laboratory Report Ordering Provider Test Date Status SLAVA HIGGINS 10/17/2024 10:06:53 Final Observation Date Value Abnormality Reference (Units ) Status Glucose [Moles/volume] in Serum or Plasma --1 hour post 50 g glucose PO 10/17/2024 10:06:53 132 Above high normal 70-129 (mg/dL) Final Performing Location [facility] 0 - [address] [place] [address]
--- OUTSIDE RECORDS SUMMARY | 2024-12-25 13:33 | External Medical Summary ---
Author Name Unknown Address Unknown Organization K01:[facility] - [address] [facility] [id number] Laboratory Report Ordering Provider Test Date Status SLAVA HIGGINS 10/17/2024 10:06:53 Final Observation Date Value Abnormality Reference (Units ) Status SYNC LEUKOCYTES IN BLOOD BY AUTOMATED COUNT 10/17/2024 10:06:53 6.29 4.00-10.80 (K/uL) Final Segs 10/17/2024 10:06:53 66.3 40.0-75.0 (%) Final Lymphs % 10/17/2024 10:06:53 26.2 18.0-42.0 (%) Final Monos 10/17/2024 10:06:53 6.4 1.0-11.0 (%) Final Eosinophils 10/17/2024 10:06:53 0.2 0.0-6.0 (%) Final Basos 10/17/2024 10:06:53 0.3 0.0-2.0 (%) Final Immature Granulocyte, Percent 10/17/2024 10:06:53 0.6 0.0-2.0 (%) Final Absolute Segs 10/17/2024 10:06:53 4.17 1.80-7.70 (K/uL) Final Lymphs, absolute 10/17/2024 10:06:53 1.65 1.00-4.80 (K/ul) Final Monos, Abs 10/17/2024 10:06:53 0.40 0.00-1.10 (K/uL) Final Eos, Abs 10/17/2024 10:06:53 0.01 0.00-0.70 (K/uL) Final Basos, Abs 10/17/2024 10:06:53 0.02 0.00-0.20 (K/uL) Final Immature Granulocytes, Number 10/17/2024 10:06:53 0.04 0.00-0.20 (K/uL) Final Performing Location [facility] - [address] [facility] [address]
--- OUTSIDE RECORDS SUMMARY | 2024-12-25 13:33 | External Medical Summary ---
Author Name Unknown Address Unknown Organization K01:LABORATORY [facility] - [facility] [address] [place] [address] Laboratory Report Ordering Provider Test Date Status CAESAR HIGGINSU 10/17/2024 10:06:53 Final Observation Date Value Abnormality Reference (Units ) Status Creatinine 10/17/2024 10:06:53 0.5 0.5-1.0 (mg/dL) Final Glomerular filtration rate/1.73 sq M.predicted [Volume Rate/Area] in Serum, Plasma or Blood by Creatinine-based formula (CKD-EPI) 10/17/2024 10:06:53 >90 >=60 (mL/min) Final eGFR is calculated based on the CKD-EPI 2020 equation. Performing Location LABORATORY [facility] - [address] [place] [address]
--- OUTSIDE RECORDS SUMMARY | 2024-12-25 13:33 | External Medical Summary | Summary of Care ---
Author Name Unknown Organization [facility] [address] [facility] [address] Phone [phone] Care Team Providers Care County Or City Auditor Name Role Phone Unavailable Primary Care Provider Unavailabl e Reason for Visit * Reason Comments [facility] Encounter Details Date Type Department Care Team (Late st Contact Info) Description 08/11/2024 9:00 AM EDT Office Visit Gynecology/Obstetri crystal Neves [address] [facility] [place] [address] Jayda Curiel PA-C [address] [place] [address] Nurse Edinson [facility] Return Bryan [address] [place] [address] Encounter for supervision of other normal , unspecified trimester*; Health counseling Allergies No known active allergiesdocumented as of this encounter (statuses as of 08/11/2024) Medications Medication Sig Dispensed Refills Start Date [...] as of this encounter (statuses as of 08/11/2024) Active Problems Problem Noted Date Diagnosed Date Health counseling 08/11/2024 Overview: Problem Action Taken Date entered Entered by Date resolved Need for food assistance referred to [facility] and local food [employer] 08/11/2024 Olivia Schultz RN 08/11/2024 Encounter for supervision of other normal , unspecified trimester 06/13/2024 Health counseling 06/13/2024 Last Assessment & Plan: Problem Action Taken Date entered Entered by Date resolved Dental care Encouraged routine visits 06/13/2024 Allison Alexander RN 06/13/2024 nutrition Due date letter given for [facility] 06/13/2024 Allison Alexander RN 06/13/2024 Transportation ([facility] car could break down at any point) [facility] transport discussed 06/13/2024 Allison Alexander RN 06/13/2024 Problem Action Taken Date entered Entered by Date resolved 1st Referral sent to [facility] 06/13/2024 Allison Alexander RN 06/13/2024 Estimated Date of Delivery Comme nts Yes 01/01/2025 Based on last me nstrual period of 03/27/2024 (Exact Date) documented as of this encounter (statuses as of 08/11/2024) Social History Tobacco Use Types Packs/Day Years [...] have money to get more. Sometimes true [place] Depression Scale Answer Date Recorded [place] Depression Scale Total 6 06/13/2024 The thought [...] on file documented as of this encounter Last Filed Vital Signs Vital Sign Reading Time Taken Comments Blood Pressure 114/72 08/11/2024 9:07 AM EDT Pulse - - Temperature - - Respiratory Rate - - Oxygen Saturation - - Inhaled Oxygen Concentration - - Weight 77.6 kg (171 lb) 08/11/2024 9:07 AM EDT Height - - Body Mass Index 28.46 06/13/2024 1:58 PM EDT documented in this encounter Progress Notes * Jayda Curiel PA-C - 08/11/2024 9:44 AM EDT 19w4d Anatomy u/s following this visit. Some nausea, improving. Has Zofran using PRN. Denies VB, LOF, contractions. ? Quickening. RTC in 4 weeks Jayda Curiel PA-C * Chio Reeves CMA - 08/11/2024 9:07 AM EDT 19w4d + nausea, Zofran helping + vomiting in the mornings documented in this encounter Nursing Notes * Olivia Schultz RN - 08/11/2024 9:58 AM EDT Patient seen by [facility] Real Estate Sales Manager. Reports not having enough food in the past couple of months. Has food at this time. Applied for [facility] and states was declined. Advised that she should be eligible as she is and is eligible for food stamps. Patient will recheck with [facility] office. Patient given list of resources for food pantry's in the area. have you cut down with your smoking yes have you quit yes have you seen a hole digger truck driver no have you seen a child welfare social worker no are you receiving counseling no have you received dental care during your no are you enrolled in [facility] no- states was denied do you receive food stamps or gan assistance yes Olivia Schultz RN documented in this encounter Plan of Treatment Upcoming Encounters Date Type Department Care Team (Late st Contact Info) Description 09/08/2024 8:30 AM EDT Office Visit Gynecology/Obstetrics Shawn Neves [address] [place] [address] Luciana Flaherty CRNP [address] [place] [address] Health Maintenance Due Date Last Done Comments [...] Diagnosis Encounter for supervision of other normal , unspecified trimester- Primary Health counseling Other specified counseling documented in this encounter
--- OUTSIDE RECORDS SUMMARY | 2024-12-25 13:33 | External Medical Summary | Summary of Care ---
Author Name Unknown Organization [facility] Address [address] [facility] [place] [address] Phone [phone] Care Team Providers Care Chemical Engineering Professor Name Role Phone Unavailable Primary Care Provider Unavailabl e Reason for Visit * Reason Comments [facility] Return Encounter Details Date Type Department Care Team (Late st Contact Info) Description 09/13/2024 9:00 AM EDT Office Visit Gynecology/Obstetri crystal Neves [address] [facility] [place] [address] Jayda Curiel PA-C [address] [place] [address] Nurse Edinson [facility] Return Bryan [address] [place] [address] Encounter for supervision of other normal , unspecified trimester*; Health counseling Allergies No known active allergiesdocumented as of this encounter (statuses as of 09/13/2024) Medications Medication Sig Dispensed Refills Start Date [...] as of this encounter (statuses as of 09/13/2024) Active Problems Problem Noted Date Diagnosed Date Food insecurity 08/28/2024 Overview: Per [facility] Protocol Health counseling 08/11/2024 Overview: Problem Action Taken Date entered Entered by Date resolved Need for food assistance referred to [facility] and local food [employer] 08/11/2024 Olivia Schultz RN 08/11/2024 Problem Action Taken Date entered Entered by Date resolved Current needs or questions Patient denies having any current needs or questions 09/13/2024 Allison Alexander RN 09/13/2024 Encounter for supervision of other normal , unspecified trimester 06/13/2024 Health counseling 06/13/2024 Last Assessment & Plan: Problem Action Taken Date entered Entered by Date resolved Dental care Encouraged routine visits 06/13/2024 Allison Alexander RN 06/13/2024 nutrition Due date letter given for [facility] 06/13/2024 Allison Alexander RN 06/13/2024 Transportation (states car could break down at any point) [facility] transport discussed 06/13/2024 Allison Alexander RN 06/13/2024 Problem Action Taken Date entered Entered by Date resolved 1st Referral sent to [facility] 06/13/2024 Allison Alexander RN 06/13/2024 Estimated Date of Delivery Comme nts Yes 01/01/2025 Based on last me nstrual period of 03/27/2024 (Exact Date) documented as of this encounter (statuses as of 09/13/2024) Social History Tobacco Use Types Packs/Day Years [...] have money to get more. Sometimes true [place] Depression Scale Answer Date Recorded [place] Depression Scale Total 6 06/13/2024 The thought [...] Sign Reading Time Taken Comments Blood Pressure 108/74 09/13/2024 9:12 AM EDT Pulse - - Temperature - - Respiratory Rate - - Oxygen Saturation - - Inhaled Oxygen Concentration - - Weight 83 kg (183 lb) 09/13/2024 9:12 AM EDT Height 165.1 cm (5' 5") 09/13/2024 9:12 AM EDT Body Mass Index 30.45 09/13/2024 9:12 AM EDT documented in this encounter Progress Notes * Jayda Curiel PA-C - 09/13/2024 9:21 AM EDT 24w2d Had follow up anatomy for facial profile. Anatomy now complete. Reviewed third tri labs with glucola with next visit. Rh + Denies VB, LOF, contractions. Pos fm. RTC in 4 weeks Jayda Curiel PA-C documented in this encounter Nursing Notes * Allison Alexander RN - 09/13/2024 9:26 AM EDT Patient seen by [facility] Aircraft Landing Gear Inspector. * Jennifer Kaye LPN - 09/13/2024 9:19 AM EDT 24w2d Denies concerns documented in this encounter Plan of Treatment Upcoming Encounters Date Type Department Care Team (Late st Contact Info) Description 10/13/2024 10:20 AM EST Laboratory Laboratory, [address] [place] [address] Zoey Neves [place] [address] [place] [address] 10/13/2024 10:30 AM EST Office Visit Gynecology/Obstetrics Shawn Neves [address] [place] [address] Alvin Hutton MD [address] [place] [address] Nurse Edinson [facility] [place] [address] [place] [address] Health Maintenance Due Date Last Done Comments [...]
--- OUTSIDE RECORDS SUMMARY | 2024-12-25 13:33 | External Medical Summary | Summary of Care ---
Author Name Unknown Organization [facility] Address [address] [facility] [address] Phone [phone] Care Team Providers Care Kitchen Hand Name Role Phone Unavailable Primary Care Provider Unavailabl e Reason for Visit * Reason Onset Date Comments Test Results 08/14/2024 Encounter Details Date Type Department Care Team (Late st Contact Info) Description 08/14/2024 Telephone Gynecology/Obstetrics [facility] [address] [facility] [place] [address] Jayda Curiel PA-C [address] [place] [address] Test Results Allergies No known active allergiesdocumented as of this encounter (statuses as of 08/14/2024) Medications Medication Sig Dispensed Refills Start Date [...] as of this encounter (statuses as of 08/14/2024) Active Problems Problem Noted Date Diagnosed Date Health counseling 08/11/2024 Overview: Problem Action Taken Date entered Entered by Date resolved Need for food assistance referred to [facility] and local food [employer] 08/11/2024 Olivia Schultz RN 08/11/2024 Encounter for supervision of other normal , unspecified trimester 06/13/2024 Health counseling 06/13/2024 Last Assessment & Plan: Problem Action Taken Date entered Entered by Date resolved Dental care Encouraged routine visits 06/13/2024 Allison Alexander RN 06/13/2024 nutrition Due date letter given for [facility] 06/13/2024 Allison Alexander RN 06/13/2024 Transportation (states car could break down at any point) [facility] transport discussed 06/13/2024 Allison Alexander RN 06/13/2024 Problem Action Taken Date entered Entered by Date resolved 1st Referral sent to [facility] 06/13/2024 Allison Alexander RN 06/13/2024 Estimated Date of Delivery Comme nts Yes 01/01/2025 Based on last me nstrual period of 03/27/2024 (Exact Date) documented as of this encounter (statuses as of 08/14/2024) Social History Tobacco Use Types Packs/Day Years [...] have money to get more. Sometimes true [place] Depression Scale Answer Date Recorded [place] Depression Scale Total 6 06/13/2024 The [...] No 07/31/2024 Does the household have a [facility] source of income? (Household - for ages [...] encounter Miscellaneous Notes * Telephone Encounter - Patti Puente OSA - 08/14/2024 1:43 PM EDT Returned call and scheduled patient for vernon * Telephone Encounter - Allison Alexander RN - 08/14/2024 1:33 PM EDT Pt is aware. Please call pt to set this up. * Telephone Encounter - Jayda Curiel PA-C - 08/14/2024 12:54 PM EDT Received anatomy ultrasound report. Growth normal. No abnormalities noted. She has uterine fibroids, these were seen on dating ultrasound. They were not able to get all pictures of baby mostly babies facial profile. They recommended repeat ultrasound in 2 weeks. I placed order for this. Please assist in scheduling once aware. Jayda Curiel PA-C documented in this encounter Plan of Treatment Upcoming Encounters Date Type Department Care Team (Late st Contact Info) Description 08/25/2024 10:30 AM EDT Imaging Radiology [address] [place] [address] 09/08/2024 8:30 AM EDT Office Visit Gynecology/Obstetrics [facility] [address] [place] [address] Luciana Flaherty CRNP [address] [place] [address] Scheduled Orders Name Type Priority Associated Diagnoses Orde r Schedule US PREG LIMITED 1 OR MORE FETUSES Medical Imaging Routine Encounter for follow-up ultrasound of anatomy Expected: 08/25/2024, Expires: 09/13/2025 Health Maintenance Due Date Last Done Comments [...] this encounter Visit Diagnoses Diagnosis Encounter for follow-up ultrasound of anatomy- Primary documented in this encounter
--- OUTSIDE RECORDS SUMMARY | 2024-12-25 13:33 | External Medical Summary | Summary of Care ---
Author Name Unknown Organization [facility] Address [address] [place] [address] Phone [phone] Care Team Providers Care Waste Machine Operator Name Role Phone Unavailable Primary Care Provider Unavailabl e Encounter Details Date Type Department Care Team (Late st Contact Info) Description 07/24/2024 Population Health External Data Unspecified Department Allergies No known active allergiesdocumented as of this encounter (statuses as of 07/24/2024) Medications Medication Sig Dispensed Refills Start Date [...] needed for Nausea. 12 Each 07/14/2024 Active Vitamin B-6 50 MG Oral Tablet Take 0.5 Tablets by mouth 3 times a day as needed for Nausea. 30 Tablet 3 07/14/2024 Active documented as of this encounter (statuses as of 07/24/2024) Active Problems Problem Noted Date Diagnosed Date Encounter for supervision of other normal , unspecified trimester 06/13/2024 Health counseling 06/13/2024 Last Assessment & Plan: Problem Action Taken Date entered Entered by Date resolved Dental care Encouraged routine visits 06/13/2024 Allison Alexander RN 06/13/2024 nutrition Due date letter given for [facility] 06/13/2024 Allison Alexander RN 06/13/2024 Transportation (states car could break down at any point) [facility] transport discussed 06/13/2024 Allison Alexander RN 06/13/2024 Problem Action Taken Date entered Entered by Date resolved 1st Referral sent to [facility] 06/13/2024 Allison Alexander RN 06/13/2024 Estimated Date of Delivery Comme nts Yes 01/01/2025 Based on last me nstrual period of 03/27/2024 (Exact Date) documented as of this encounter (statuses as of 07/24/2024) Social History Tobacco Use Types Packs/Day Years Used Date Smoking Tobacco: Former Cigarettes Smokeless Tobacco: Never Alcohol Use Standard Drinks/Week Comments Not Currently 0 (1 standard drink = 0.6 oz pur e alcohol) Hunger Vital Sign Answer Date Recorded Within the past 12 months, y ou worried that your food would run out before you got the money to buy more. Never true 06/16/20 24 Within the past 12 months, t he food you bought just didn't last and you didn't have money to get more. Never true 06/16/2024 [place] Depression Scale Answer Date Recorded [place] Depression Scale Total 6 06/13/2024 The thought of harming myself has occurred to me . Never 06/13/2024 Childcare Answer Date Recorded Do you feel overwhelmed with taking care of a child, family member or friend? No 06/16/2024 Does your family need help f inding childcare? (Household - for ages 0-17 years) Not on file 06/16/2024 Clothing Answer Date Recorded Have you been unable to get clothing when it was really needed? No 06/16/2024 Is your family able to get c lothes or diapers when needed? (Household - for ages 0-17 years) Not on file 06/16/2024 Personal Safety Answer Date Recorded Do you feel unsafe or have concerns for your saf ety? No 06/16/2024 Do you have concerns for you r family's safety? (Household - for ages 0-17 years) Not on file 06/16/2024 Utilities Answer Date Recorded Do you have trouble paying y our heating, water, or electric bill? No 06/16/2024 Is your family able to pay t he heat, water, or electric bill? (Household - for ages 0-17 years) Not on file 06/16/2024 Does your family have access to good internet? (Household - for ages 0-17 years) Not on file 06/16/2024 Employment Status Answer Date Recorded Are you unemployed or without regular income? No 06/16/2024 Does the household have a re lar source of income? (Household - for ages 0-17 years) Not on file 06/16/2024 Social Connections Answer Date Recorded How often do you feel lonely or isolated from th ose around you? Never 06/16/2024 Financial Resource Strain Answer Date R ecorded Do you have any trouble payi ng for your medications, or do you think you might in the future? No 06/16/2024 Does your family have troubl e paying for medicine? (Household - for ages 0-17 years) Not on file 06/16/2024 Transportation Needs Answer Date Record ed Do you have trouble getting a ride to medical visits or work? (Adult - for ages 18 years and over) Not on file 06/16/2024 Does your family have a hard time getting a ride to doctors visits? (Household - for ages 0-17 years) Not on file 06/16/2024 Has lack of transportation k ept you from medical appointments, meetings, work, or from getting things needed for daily living? Check all that apply. No 06/16/2024 Do you (or your family) have trouble finding or paying for a ride (transportation)? (Household - for ages 0-17 years) Not on file 06/16/2024 Housing Stability Answer Date Recorded Do you currently live in a s helter or have no steady place to sleep at night? No 06/16/2024 Do you think you are at risk of becoming homeless? (Adult - for ages 18 years and over) Not on file 06/16/2024 Does your family worry about paying for your home or becoming homeless? (Household - for ages 0-17 years) Not on file 0 06/16/2024 Are you homeless or worried that you might be in the future? No 06/16/2024 Are you (or your family) kaitlynn eless or worried that you might be in the future? (Household - for ages 0-17 years) Not on file Food Insecurity Answer Date Recorded Do you need food for this week? No 06/16/2024 Are you able to get enough f ood for your family? (Household - for ages 0-17 years) Not on file 06/16/2024 Does your family need food t his week? (Household - for ages 0-17 years) Not on file 06/16/2024 Do you always have enough fo od for your family? (Household - for ages 0-17 years) Not on file 06/16/2024 Estimated Date of Delivery Comme nts Yes [...] on file documented as of this encounter Plan of Treatment Upcoming Encounters Date Type Department Care Team (Late st Contact Info) Description 08/11/2024 9:00 AM EDT Office Visit Gynecology/Obstetrics [facility] [address] [place] [address] Jayda Curiel PA-C [address] [place] [address] Nurse Edinson [facility] [address] [place] [address] 08/11/2024 10:30 AM EDT Imaging Radiology [facility] 2nd Floor, [place] [address] [place] [address] Health Maintenance Due Date Last Done Comments Depression Screening 2006 Hepatitis B Vaccine (1 of 3 - 19+ 3-dose series) 2013 DTap/Tdap Vaccines (2 - Td o r Tdap) 10/12/2021 10/12/2011 COVID-19 Vaccine (1 - 2022-2 4 season) 2024 Influenza Vaccine (FLU shot) (#1) [...]
--- OUTSIDE RECORDS SUMMARY | 2024-12-25 13:33 | External Medical Summary | Summary of Care ---
Author Name Unknown Organization [facility] Address [address] [facility] [place] [address] Phone [phone] Care Team Providers Care Senior Statistician Name Role Phone Unavailable Primary Care Provider Unavailabl e Reason for Visit * Reason Comments [facility] Encounter Details Date Type Department Care Team (Late st Contact Info) Description 09/13/2024 9:00 AM EDT Office Visit Gynecology/Obstetri crystal Neves [address] [facility] [place] [address] Jayda Curiel PA-C [address] [place] [address] Nurse Edinson [facility] Return Bryan [address] [place] [address] Encounter for supervision of other normal , [...] resolved Need for food assistance referred to [facility] and local food [employer] 08/11/2024 Olivia Schultz RN 08/11/2024 Problem Action [...] 06/13/2024 nutrition Due date letter given for [facility] 06/13/2024 Allison Alexander RN 06/13/2024 Transportation (states car could break down at any point) [facility] transport discussed 06/13/2024 Allison Alexander RN 06/13/2024 Problem Action Taken Date entered Entered by Date resolved 1st Referral sent to [facility] 06/13/2024 Allison Alexander RN 06/13/2024 Estimated [...] have money to get more. Sometimes true [place] Depression Scale Answer Date Recorded [place] Depression Scale Total 6 06/13/2024 The thought [...] 09/13/2024 9:26 AM EDT Patient seen by [facility] Van Cdl Driver. * Jennifer Kaye LPN - 09/13/2024 9:19 AM EDT 24w2d Denies concerns documented in this encounter Plan of Treatment Upcoming Encounters Date Type Department Care Team (Late st Contact Info) Description 10/13/2024 10:20 AM EST Laboratory Laboratory, [address] [place] [address] Zoey Neves [place] [address] [place] [address] 10/13/2024 10:30 AM EST Office Visit Gynecology/Obstetrics Shawn Neves [address] [place] [address] Alvin Hutton MD [address] [place] [address] Nurse Edinson [facility] Return Bryan [address] [place] [address] Health Maintenance Due Date Last Done Comments [...]
--- OUTSIDE RECORDS SUMMARY | 2024-12-25 13:33 | External Medical Summary | Summary of Care ---
Author Name Unknown Organization [facility] [address] [facility] [address] Phone [phone] Care Team Providers Care Production Machine Operator Name Role Phone Unavailable Primary Care Provider Unavailabl e Encounter Details Date Type Department Care Team (Late st Contact Info) Description 07/19/2024 Telephone Gynecology/Obstetrics [facility] [email or web address] [place] [address] Telma Perkins MD [email or web address] [place] [address] Allergies No known active allergiesdocumented as of this encounter (statuses as of 07/19/2024) Medications Medication Sig Dispensed Refills Start Date [...] as of this encounter (statuses as of 07/19/2024) Active Problems Problem Noted Date Diagnosed Date [...] by Date resolved 1st Referral sent to [facility] 06/13/2024 Allison Alexander RN 06/13/2024 Estimated Date of Delivery Comme nts Yes 01/01/2025 Based on last me nstrual period of 03/27/2024 (Exact Date) documented as of this encounter (statuses as of 07/19/2024) Social History Tobacco Use Types Packs/Day Years [...] money to get more. Never true 06/16/2024 [place] Depression Scale Answer Date Recorded [place] Depression Scale Total 6 06/13/2024 The thought [...] encounter Miscellaneous Notes * Telephone Encounter - Olga Nickerson LPN - 07/19/2024 11:08 AM EDT Pt calling in with cold symptoms asking what is safe in for congestion. Per the booklet Medications safe to take for a cold in as listed in the Next Nine Months book are: Sudafed, Dimetapp,Chlortimeton,Tylenol Cold and Sinus, Breathe Right Strips, [place] Nasal [place], and Benadryl. For a cough:Plain Robitusin, Vicks Vapor-Rub,Delsym, Cepacol lozenges or Chloraseptic spray.Tylenol may be taken for minor aches and pains, do not exceed 1000mg in 4 hours. Pt states she has also been vomiting and having a hard time keeping liquids down. Pt states she does not have money to continuous pickling line pickler helper her Zofran. Advised pt that if she is unable to keep anything down for more than 24 hours that we would recommend going to ER for hydration. Pt verbalized understanding. documented in this encounter Plan of Treatment Upcoming Encounters Date Type Department Care Team (Late st Contact Info) Description 08/11/2024 10:30 AM EDT Imaging Radiology [facility] 2nd Floor, [place] [address] [place] [address] 08/11/2024 1:30 PM EDT Office Visit Gynecology/Obstetrics [facility] [address] [place] [address] Luciana Flaherty CRNP [address] [place] [address] Health Maintenance Due Date Last Done Comments [...]
--- OUTSIDE RECORDS SUMMARY | 2024-12-25 13:33 | External Medical Summary | Summary of Care ---
Author Name Unknown Organization [facility] Address [address] [facility] [place] [address] Phone [phone] Care Team Providers Care Taper Operator Name Role Phone Unavailable Primary Care Provider Unavailabl e Reason for Visit * Reason Comments [facility] Encounter Details Date Type Department Care Team (Late st Contact Info) Description 07/14/2024 11:30 AM EDT Office Visit Gynecology/Obstetri crystal [place] [address] [facility] [place] [id number] Jayda Curiel PA-C [address] [place] [id number] Nurse [place] [facility] [place] [address] [place] [address] Encounter for supervision of other normal , unspecified trimester*; Health counseling; Nausea and vomiting during Allergies No known active allergiesdocumented as of this encounter (statuses as of 07/14/2024) Medications Medication Sig Dispensed Refills Start Date [...] as of this encounter (statuses as of 07/14/2024) Active Problems Problem Noted Date Diagnosed Date [...] car could break down at any point) [facility] transport discussed 06/13/2024 Allison Alexander RN 06/13/2024 Problem Action Taken Date entered Entered by Date resolved 1st Referral sent to [facility] 06/13/2024 Allison Alexander RN 06/13/2024 Estimated Date of Delivery Comme nts Yes 01/01/2025 Based on last me nstrual period of 03/27/2024 (Exact Date) documented as of this encounter (statuses as of 07/14/2024) Social History Tobacco Use Types Packs/Day Years [...] money to get more. Never true 06/16/2024 Paradise Depression Scale Answer Date Recorded Paradise Depression Scale Total 6 06/13/2024 The thought [...] Sign Reading Time Taken Comments Blood Pressure 112/68 07/14/2024 11:10 AM EDT Pulse - - Temperature - - Respiratory Rate - - Oxygen Saturation - - Inhaled Oxygen Concentration - - Weight 76.8 kg (169 lb 6.4 oz) 07/14/2024 11:10 AM EDT Height - - Body Mass Index 28.19 06/13/2024 1:58 PM EDT documented in this encounter Patient Instructions * Patient Instructions* Jayda Curiel PA-C - 07/14/2024 11:16 AM EDT For nausea/vomiting in : Vitamin B6 (10-25 mg) three times a day Doxylamine (Unisom) 25 mg at bedtime ?Eat as soon as you feel hungry, or even before you feel hungry ?Snack often and eat small meals - The best foods to eat have lots of protein or carbohydrates, butnot a lot of fat. Good choices are crackers, bread, and low- fat yogurt. You should also avoid spicyfoods. ?Drink cold, clear beverages that are either fizzy or sour - Good choices are lemonade and rock russell. ?Eat rock-flavored lollipops ?Smell fresh lemon, mint, or orange ?[place] your teeth right after you eat ?Do not lie down right after you eat ?Take your vitamins at bedtime with a snack, not in the morning ?Avoid things that make you feel nauseous - That might include stuffy rooms, strong smells, hot places, loud noises, or not sleeping enough. Try to figure out if some foods and drinks stay down better than others. Avoid foods and drinks that seem to make you feel sick. This is different for different people. Should I see a doctor or nurse? -- See your doctor or nurse right away if you: ?Throw up every day or throw up over and over during the day. This is even more of a concern if there is blood in your vomit. ?Are losing weight ?Have pain or cramps in your belly ?Think you have lost too many fluids. This is called dehydration. Signs include not urinatingvery much, having dark yellow urine, or feeling dizzy when you stand up. If you cant keep anything down, you might need to be given fluids through a tube that is put into one of your veins, called an IV. Plus, you might need to get a medicine to prevent nausea and vomiting. documented in this encounter Progress Notes * Jayda Curiel PA-C - 07/14/2024 11:23 AM EDT 15w4d Nausea and vomiting improving but she is still struggling on some days. Has Zofran helps for most part. Able to keep food and fluids down. Has looked for Vitamin B6 but hasn't been able to find. Would like to try. Rx sent. Reviewed Unisom too at bedtime. Also discussed Phenergan suppositories. She would like to try. Precautions discussed. Declines genetic testing. Denies LOF, VB, contractions. Anatomy with next visit RTC in 4 weeks Jayda Curiel PA-C * Chio Reeves CMA - 07/14/2024 11:10 AM EDT 15w4d + nausea/vomiting every morning + headaches from throwing up documented in this encounter Nursing Notes * Allison Alexander RN - 07/14/2024 12:09 PM EDT Pt having issues with insurance. Told it was inactive. States that she will stop at the assistance office upon leaving. Has due date letter. documented in this encounter Plan of Treatment Upcoming Encounters Date Type Department Care Team (Late st Contact Info) Description 08/11/2024 10:30 AM EDT [facility] [address] [place] [phone] 08/11/2024 1:30 PM EDT Office Visit Gynecology/Obstetrics [facility] [address] [place] [phone] Luciana Flaherty CRNP [address] [place] [phone] Scheduled Orders Name Type Priority Associated Diagnoses Orde r Schedule US PREG SINGLE/1ST GEST, 14 WEEKS OR LATER Medical Imaging Routine Encounter for supervision of other normal , unspecified trimester Expected: 08/14/2024, Expires: 08/14/2025 Health Maintenance Due Date Last Done Comments Depression Screening 2006 Hepatitis B Vaccine (1 of 3 - 19+ 3-dose series) 2013 DTap/Tdap Vaccines (2 - Td o r Tdap) 10/12/2021 10/12/2011 COVID-19 Vaccine (1 - 2022-2 4 season) 2023 Influenza Vaccine (FLU shot) (#1) 2024 Pap [...] trimester- Primary Health counseling Other specified counseling Nausea and vomiting during documented in this encounter
[2024-12-25] MEDS ORDERED: NURSING L&D Epidural Breakthrough Pain Update ONE (13:42)
[2024-12-25] MEDS: ONDANSETRON INJ 2 MG/ML 2 ML VIAL IV PRN (13:45)
[2024-12-25] MEDS: LABETALOL HCL 100 MG TAB PO SCH (14:05)
[2024-12-25] MEDS: BUPIVACAINE 0.25% PF 30 ML VIAL EPI PRN (18:02)
[2024-12-25] MEDS: fentaNYL citrate PF 100 MCG/2 ML VIAL EPI PRN (18:02)
[2024-12-25] MEDS: ePHEDrine sulfate 50 MG/ML AMP ONE (18:17)
--- NOTE | 2024-12-25 18:31 | Obstetrical Progress Note ---
Date of Service December 25, 2024 Assessment & Plan Admission and Anticipated Discharge Date Admission Date: December 25, 2024 Subjective Patient is reevaluated. She feels pressure with contractions and tired. VE; 10/ 100%/ +1 FHR categ I Discussed options of passive descent vs start pushing, she wants to rest, labor down for a while Continue to monitor closely Results & Data Vital Signs (Past 12 Hours) Vital Signs Temp Pulse Resp BP Pulse Ox 12/25/24 18:26 98 12/25/24 18:26 87 12/25/24 18:26 90 12/25/24 18:26 129/93 12/25/24 18:21 95 12/25/24 18:21 96 H 12/25/24 18:20 18 12/25/24 18:20 36.8 C 18 12/25/24 18:20 85 12/25/24 18:20 133/69 12/25/24 18:16 94 12/25/24 18:16 98 H 12/25/24 18:11 95 12/25/24 18:11 90 12/25/24 18:11 144/73 H 12/25/24 18:08 91 H 12/25/24 18:08 135/80 12/25/24 18:06 99 12/25/24 18:06 96 H 12/25/24 18:01 99 12/25/24 18:01 88 12/25/24 18:01 152/73 H 12/25/24 17:56 100 12/25/24 17:56 93 H 12/25/24 17:51 100 12/25/24 17:51 96 H 12/25/24 17:49 85 12/25/24 17:49 170/95 H 12/25/24 17:46 99 12/25/24 17:46 85 12/25/24 17:41 99 12/25/24 17:41 90 12/25/24 17:36 100 12/25/24 17:36 101 H 12/25/24 17:35 88 12/25/24 17:35 166/99 H 12/25/24 17:31 99 12/25/24 17:31 91 H 12/25/24 17:26 100 12/25/24 17:26 85 12/25/24 17:21 99 12/25/24 17:21 96 H 12/25/24 17:20 96 H 12/25/24 17:20 145/99 H 12/25/24 17:18 16 12/25/24 17:18 37.0 C 16 12/25/24 17:16 99 12/25/24 17:16 89 12/25/24 17:11 99 12/25/24 17:11 91 H 12/25/24 17:06 99 12/25/24 17:06 90 12/25/24 17:06 83 12/25/24 17:06 157/85 H 12/25/24 17:01 99 12/25/24 17:01 89 12/25/24 16:56 99 12/25/24 16:56 90 12/25/24 16:51 98 12/25/24 16:51 82 12/25/24 16:49 18 12/25/24 16:49 36.7 C 18 12/25/24 16:49 82 12/25/24 16:49 133/83 12/25/24 16:46 99 12/25/24 16:46 86 12/25/24 16:41 99 12/25/24 16:41 101 H 12/25/24 16:36 100 12/25/24 16:36 92 H 12/25/24 16:36 91 H 12/25/24 16:36 130/78 12/25/24 16:31 99 12/25/24 16:31 94 H 12/25/24 16:26 99 12/25/24 16:26 80 12/25/24 16:21 97 12/25/24 16:21 85 12/25/24 16:19 76 12/25/24 16:19 140/82 12/25/24 16:16 99 12/25/24 16:16 85 12/25/24 16:11 98 12/25/24 16:11 88 12/25/24 16:06 98 12/25/24 16:06 85 12/25/24 16:04 80 12/25/24 16:04 139/86 12/25/24 16:01 99 12/25/24 16:01 82 12/25/24 15:56 98 12/25/24 15:56 81 12/25/24 15:51 98 12/25/24 15:51 87 12/25/24 15:49 88 12/25/24 15:49 138/82 12/25/24 15:46 97 12/25/24 15:46 84 12/25/24 15:41 93 12/25/24 15:41 96 H 12/25/24 15:36 94 12/25/24 15:36 86 12/25/24 15:35 80 12/25/24 15:35 142/79 H 12/25/24 15:31 95 12/25/24 15:31 81 12/25/24 15:28 16 12/25/24 15:28 36.7 C 16 12/25/24 15:28 82 12/25/24 15:28 148/77 H 12/25/24 15:26 96 12/25/24 15:26 84 12/25/24 15:21 99 12/25/24 15:21 82 12/25/24 15:19 89 12/25/24 15:19 180/98 H 12/25/24 15:16 98 12/25/24 15:16 86 12/25/24 15:11 98 12/25/24 15:11 85 12/25/24 15:06 99 12/25/24 15:06 87 12/25/24 15:05 82 12/25/24 15:05 158/84 H 12/25/24 15:01 98 12/25/24 15:01 86 12/25/24 14:56 98 12/25/24 14:56 84 12/25/24 14:51 98 12/25/24 14:51 86 12/25/24 14:51 156/83 H 12/25/24 14:46 98 12/25/24 14:46 94 H 12/25/24 14:41 98 12/25/24 14:41 90 12/25/24 14:36 98 12/25/24 14:36 82 12/25/24 14:34 82 12/25/24 14:34 139/88 12/25/24 14:31 98 12/25/24 14:31 78 12/25/24 14:26 98 12/25/24 14:26 83 12/25/24 14:21 98 12/25/24 14:21 90 12/25/24 14:20 72 12/25/24 14:20 129/83 12/25/24 14:16 98 12/25/24 14:16 78 12/25/24 14:11 98 12/25/24 14:11 83 12/25/24 14:06 94 12/25/24 14:06 105 H 12/25/24 14:05 86 12/25/24 14:05 146/84 H 12/25/24 14:04 18 12/25/24 14:04 36.7 C 18 12/25/24 14:01 97 12/25/24 14:01 86 12/25/24 13:56 97 12/25/24 13:56 100 H 12/25/24 13:51 98 12/25/24 13:51 93 H 12/25/24 13:49 93 H 12/25/24 13:49 159/88 H 12/25/24 13:46 97 12/25/24 13:46 98 H 12/25/24 13:41 97 12/25/24 13:41 95 H 12/25/24 13:36 96 12/25/24 13:36 97 H 12/25/24 13:34 100 H 12/25/24 13:34 166/93 H 12/25/24 13:31 98 12/25/24 13:31 102 H 12/25/24 13:26 97 12/25/24 13:26 76 12/25/24 13:21 97 12/25/24 13:21 81 12/25/24 13:21 144/82 H 12/25/24 13:16 96 12/25/24 13:16 87 12/25/24 13:11 97 12/25/24 13:11 90 12/25/24 13:06 94 12/25/24 13:06 88 12/25/24 13:05 16 12/25/24 13:05 36.7 C 16 12/25/24 13:04 83 12/25/24 13:04 141/83 H 12/25/24 13:01 94 12/25/24 13:01 83 12/25/24 13:00 94 12/25/24 13:00 86 12/25/24 12:56 96 12/25/24 12:56 81 12/25/24 12:51 98 12/25/24 12:51 89 12/25/24 12:47 83 12/25/24 12:47 131/75 12/25/24 12:46 98 12/25/24 12:46 80 12/25/24 12:44 77 12/25/24 12:44 135/82 12/25/24 12:43 78 12/25/24 12:43 143/78 H 12/25/24 12:41 99 12/25/24 12:41 83 12/25/24 12:41 80 12/25/24 12:41 140/78 12/25/24 12:36 99 12/25/24 12:36 105 H 12/25/24 12:31 100 12/25/24 12:31 86 12/25/24 12:26 98 12/25/24 12:26 85 12/25/24 12:18 36.7 C 12/25/24 12:18 93 H 12/25/24 12:18 141/91 H 12/25/24 12:05 18 12/25/24 12:05 36.8 C 18 12/25/24 11:03 75 12/25/24 11:03 145/89 H 12/25/24 11:02 80 12/25/24 11:02 160/96 H 12/25/24 11:00 18 12/25/24 11:00 36.8 C 18 12/25/24 10:09 18 12/25/24 10:09 36.8 C 18 12/25/24 10:09 75 12/25/24 10:09 139/97 12/25/24 09:20 36.8 C 78 18 139/97 12/25/24 09:12 77 12/25/24 09:12 156/86 H 12/25/24 09:05 87 12/25/24 09:05 149/82 H 12/25/24 09:04 78 12/25/24 09:04 181/85 H 12/25/24 08:53 77 12/25/24 08:53 163/102 H 12/25/24 08:38 78 139/97
[2024-12-25] MEDS: fentANYL 2 MCG/ML BUPIVacaine 0.125%-NSS 100ML BAG EPI PRN (18:46)
--- NOTE | 2024-12-25 18:52 | Anesthesia Procedure Note ---
Date of Service December 25, 2024 Anesthesia Epidural Re-Dose Vital Signs Temp Pulse Resp BP Pulse Ox 98.2 F 88 18 131/73 97 12/25/24 18:20 12/25/24 18:50 12/25/24 18:20 12/25/24 18:50 12/25/24 18:46 Notes Pain Intensity: 1 Dilatation (cm): 10.0 Effacement (%): 100 Called by nursing to evaluate epidural as the patient is having increased pain. The epidural was re-dosed with the following medications (all medications via epidural route) after negative aspiration of the epidural catheter for CSF/HEME. 0.25% Bupivacaine (4ml) with 100 mcg Fentanyl After Epidural Re-Dose Mental Status: alert / awake / arousable Pain: improving with treatment Airway Patency, RR, SpO2: stable & adequate BP & HR: stable & adequate
[2024-12-25] MEDS: miSOPROStoL 200 MCG TAB PR ONE (20:57)
[2024-12-25] MEDS ORDERED: bisacodyL 10 MG SUPP PR PRN (21:03)
[2024-12-25] MEDS ORDERED: oxyCODONE/ACETAMINOPHEN 5mg/325mg TAB PO PRN (21:03)
[2024-12-25] MEDS ORDERED: HYDROCORTISONE ACETATE 25 MG SUPP PR PRN (21:03)
[2024-12-25] MEDS ORDERED: ACETAMINOPHEN 325 MG TAB PO PRN (21:03)
--- NOTE | 2024-12-25 21:09 | Delivery Summary ---
Vaginal Delivery Summary Date of Service December 25, 2024 Vaginal Delivery Summary Patient was found to be fully dilated and desires to push. She pushed with 3 contractions and delivered the head and then shoulders with minimal traction at 20:45. The baby was handed off to the mother. The cord was clampedx2 and cut at 1 minute. The vagina and perineum were checked and found to be intact, right labia had 1st degree superficial laceration. It was repaired with 3/0 Vicryl on SH needle. The placenta was delivered spontaneously as intact and complete. The uterus was explored and found to be empty. QBL was 160 ml. The fundus was firm The baby was a viable female , Apgars 8/9, the weight is pending The mother and the baby tolerated the procedure well. No complications happened and I was present during whole procedure.
[2024-12-25] MEDS: BENZOCAINE 20% SPRY 85 APPLN/85 GM CAN EXT PRN (23:11)
[2024-12-26 06:38] LABS: Hematocrit (blood only) 22.3 % (37.0-47.0); Hemoglobin 7.3 g/dl (12.0-16.0); Mean Corpuscular Hemoglobin 25.5 pg (25.0-34.0); Mean Corpuscular Hgb Conc 32.7 g/dL (32.0-36.0); Mean Platelet Volume 11.2 fL (9.4-12.4); Nucleated RBC # (auto) 0.02 K/uL (0.00-0.12); Nucleated RBC % (auto) 0.1 %; Platelet Count 236 K/uL (130-400); RDW Coefficient of Variation 15.1 % (11.5-14.5); RDW Standard Deviation 42.6 fL (36.4-46.3); Red Blood Count 2.86 M/uL (4.20-5.40); White Blood Count 17.31 K/ul (4.8-10.8)
[2024-12-26] MEDS: IBUPROFEN 600 MG TAB PO PRN (07:16)
[2024-12-26] MEDS: DOCUSATE SODIUM 100 MG CAP PO SCH (07:16)
[2024-12-26] MEDS: PRENATAL VITAMIN 1 TAB PO SCH (07:16)
[2024-12-26] MEDS: FERROUS SULFATE 325 MG TAB PO SCH (07:16)
[2024-12-26] MEDS: DIPHTHER/TETAN/PERTUS Vaccine (Tdap, Adol/Adult) 0.5mL IM ONE (07:18)
--- NOTE | 2024-12-26 07:32 | Anesthesia Procedure Note ---
Date of Service December 26, 2024 Anesthesia Post Epidural Note Vital Signs Vital Signs: Temp Pulse Resp BP Pulse Ox O2 Del Method 36.8 C 82 18 105/73 99 Room Air 12/26/24 07:02 12/26/24 07:02 12/26/24 07:02 12/26/24 07:02 12/26/24 04:00 12/26/24 07:02 Pain Intensity Lower Abdomen: Pain Intensity: 4 Notes Mental Status: alert / awake / arousable and participated in evaluation Nausea / Vomiting: adequately controlled Pain: adequately controlled Airway Patency, RR, SpO2: stable & adequate BP & HR: stable & adequate Hydration State: stable & adequate Neuraxial Anesthesia: was administered and sensory block is resolving Anesthetic Complications: no major complications apparent and Pt Satisfied with anesthetic care Epidural: Removed without complications and With tip intact
--- NOTE | 2024-12-26 12:31 | Obstetrical Progress Note ---
Date of Service December 26, 2024 Assessment & Plan (1) Anemia, : Pt doing well On Venofer and PO iron D/c home tomorrow Results & Data Vital Signs (Past 12 Hours) Vital Signs Temp Pulse Resp BP Pulse Ox O2 Del Method 12/26/24 11:30 36.8 C 87 24 130/83 97 Room Air 12/26/24 07:02 36.8 C 82 18 105/73 Room Air 12/26/24 04:00 37.3 C 82 16 118/81 99 Room Air
[2024-12-26] MEDS: IRON SUCROSE 200 MG in SODIUM CHLORIDE 0.9% 100 ML IV ONE (12:53)
[2024-12-26] MEDS: bisacodyL 5 MG TABEC PO SCH (20:17)
[2024-12-27 07:10] LABS: Hematocrit (blood only) 20.4 % (37.0-47.0); Hemoglobin 6.6 g/dl (12.0-16.0)
[2024-12-27] MEDS ORDERED: SODIUM CHLORIDE 0.9% 50 ML IV PRN ×2 (07:27→07:57)
[2024-12-27] MEDS ORDERED: SODIUM CHLORIDE 0.9% 100 ML IV PRN ×2 (07:27→07:57)
--- NOTE | 2024-12-27 07:27 | Obstetrical Progress Note ---
Date of Service December 27, 2024 Assessment & Plan (1) Anemia, : PPD #2 pt doing well H/H6.05/04. pt is asymptomatic discussed blood transfusion Discussed risk and benefits of blood transfusion including tranfusion reaction Pt is agreeable and consent obtained Subjective Ambulation: ambulating normally Voiding: no voiding problems Passing Gas:: Yes Diet Tolerance:: regular diet Lochia:: Small Feeding Type:: breast feeding Review of Systems All systems reviewed & are unremarkable except as noted in HPI & below Physical Exam Constitutional WD/WN, vitals as above well developed and well nourished Eyes PERRL, conjunctivae normal, anicteric sclerae Neck trachea midline, no thyromegaly Respiratory normal respiratory effort, lungs clear to auscultation Auscultation: no crackles, no rales and no wheezes Cardiovascular RRR, no murmur, no edema Gastrointestinal (Abdomen) normal bowel sounds, soft, nontender, no hepatosplenomegaly Uterus is below umbilicus Musculoskeletal no cyanosis or clubbing, extremities motor strength 5/5 Skin no rashes, warm and dry Neurologic patellar DTR's 2+ bilat, sensation intact Psychiatric A+Ox3, euthymic affect Genitourinary normal external appearance Results & Data Vital Signs (Past 12 Hours) Vital Signs Temp Pulse Resp BP Pulse Ox O2 Del Method 12/27/24 06:59 142/92 H 12/26/24 23:16 37.1 C 98 H 16 143/87 H 99 Room Air 12/26/24 20:19 37.0 C 87 16 131/86 99 Room Air
[2024-12-27] MEDS: diphenhydrAMINE Capsule 25 MG CAP PO ONE (08:08)
[2024-12-27] MEDS: ACETAMINOPHEN 325 MG TAB PO STA (08:08)
[2024-12-27] MEDS: LABETALOL HCL 100 MG TAB PO ONE (14:39)
[2024-12-27 15:24] LABS: Hematocrit (blood only) 25.5 % (37.0-47.0); Hemoglobin 8.3 g/dl (12.0-16.0); Mean Corpuscular Hemoglobin 26.3 pg (25.0-34.0); Mean Corpuscular Hgb Conc 32.5 g/dL (32.0-36.0); Mean Corpuscular Volume 80.7 fL (80.0-100.0); Mean Platelet Volume 10.6 fL (9.4-12.4); Nucleated RBC # (auto) 0.06 K/uL (0.00-0.12); Nucleated RBC % (auto) 0.3 %; Platelet Count 300 K/uL (130-400); RDW Coefficient of Variation 15.5 % (11.5-14.5); RDW Standard Deviation 45.2 fL (36.4-46.3); Red Blood Count 3.16 M/uL (4.20-5.40); White Blood Count 21.83 K/ul (4.8-10.8)
[2024-12-27] MEDS: MEASLES, MUMPS & RUBELLA VIRUS VACCINE (MMR) 0.5ML VIAL SQ ONE (17:08)
[2024-12-27 20:58] VITALS: RESP 18
[2024-12-27] MEDS: LABETALOL HCL 200 MG TAB PO SCH (22:07)
[2024-12-27 23:44] VITALS: O2SAT 98
[2024-12-28] MEDS: ACETAMINOPHEN 325 MG TAB PO PRN (01:44)
[2024-12-28 06:14] LABS: Hematocrit (blood only) 22.8 % (37.0-47.0); Hemoglobin 7.3 g/dl (12.0-16.0); Mean Corpuscular Hemoglobin 26.1 pg (25.0-34.0); Mean Corpuscular Volume 81.4 fL (80.0-100.0); Mean Platelet Volume 10.6 fL (9.4-12.4); Nucleated RBC # (auto) 0.08 K/uL (0.00-0.12); Nucleated RBC % (auto) 0.5 %; Platelet Count 286 K/uL (130-400); RDW Coefficient of Variation 15.6 % (11.5-14.5); RDW Standard Deviation 45.5 fL (36.4-46.3); White Blood Count 16.92 K/ul (4.8-10.8)
[2024-12-28 06:59] LABS: Basophils % (auto) 0.6 %; Eosinophils % (auto) 1.2 %; Hypochromasia Present; Immature Granulocytes # (auto) 0.89 K/uL (0.01-0.20); Immature Granulocytes % (auto) 5.3 %; Lymphocytes # (auto) 3.47 K/uL (1.20-3.40); Lymphocytes % (auto) 20.5 %; Monocytes # (auto) 0.95 K/uL (0.11-0.59); Monocytes % (auto) 5.6 %; Neutrophils # (auto) 11.31 K/uL (1.40-6.50); Neutrophils % (auto) 66.8 %
--- NOTE | 2024-12-28 08:34 | Obstetrical Progress Note ---
Date of Service December 28, 2024 Assessment & Plan Admission and Anticipated Discharge Date Admission Date: December 25, 2024 Subjective Patient is seen and examined. She feels well, no complaints. Ambulating without dizziness Denies light headed ness or tiredness Voiding without difficulty Tolerating regular diet with out N&V Bleeding is minimal No fever/ chills/ CP/ SOB/ N&V/ Leg pain Breast feeding without problems Vital Signs Temp Pulse Pulse Resp BP BP BP 12/28/24 05:49 81 154/97 H 12/28/24 02:40 137/82 12/28/24 01:44 147/39 H 12/27/24 23:15 36.8 C 87 18 141/91 H 12/27/24 22:09 88 147/93 H 12/27/24 20:10 36.6 C 94 H 18 137/88 12/27/24 20:10 12/27/24 16:10 36.9 C 85 20 130/85 12/27/24 14:00 91 H 20 149/99 H 12/27/24 12:37 89 20 144/95 H 12/27/24 11:10 36.7 C 76 22 138/91 12/27/24 10:25 36.8 C 84 20 144/91 H 12/27/24 09:55 36.5 C 87 18 146/94 H 12/27/24 09:25 36.6 C 86 20 143/94 H 12/27/24 09:10 36.8 C 83 20 138/91 12/27/24 08:55 36.8 C 85 20 148/94 H 12/27/24 08:41 37.1 C 103 H 20 150/93 H Pulse Ox O2 Del Method 12/28/24 05:49 12/28/24 02:40 12/28/24 01:44 12/27/24 23:15 98 Room Air 12/27/24 22:09 12/27/24 20:10 97 Room Air 12/27/24 20:10 Room Air 12/27/24 16:10 12/27/24 14:00 97 Room Air 12/27/24 12:37 12/27/24 11:10 12/27/24 10:25 12/27/24 09:55 97 12/27/24 09:25 97 12/27/24 09:10 97 12/27/24 08:55 12/27/24 08:41 97 Lab Results 12/25/24 12/25/24 12/25/24 Range/Units 08:35 09:33 10:25 WBC 10.72 (4.8-10.8) K/ul RBC 3.74 L (4.20-5.40) M/uL Hgb 9.5 L (12.0-16.0) g/dl Hct 29.2 L (37.0-47.0) % MCV 78.1 L (80.0-100.0) fL MCH 25.4 (25.0-34.0) pg MCHC 32.5 (32.0-36.0) g/dL RDW Std Deviation 41.5 (36.4-46.3) fL RDW Coeff of Selina 14.7 H (11.5-14.5) % Plt Count 289 (130-400) K/uL MPV 11.2 (9.4-12.4) fL Immature Gran % (Auto) % Neut % (Auto) % Lymph % (Auto) % [place] % (Auto) % Eos % (Auto) % Baso % (Auto) % Neut # (Auto) (1.40-6.50) K/uL Lymph # (Auto) (1.20-3.40) K/uL [place] # (Auto) (0.11-0.59) K/uL Eos # (Auto) (0.00-0.50) K/uL Baso # (Auto) (0.00-0.20) K/uL Immature Gran # (Auto) (0.01-0.20) K/uL Absolute Nucleated RBC 0.05 (0.00-0.12) K/uL Nucleated RBC % (auto) 0.5 % Hypochromasia PT 9.6 (9.0-12.0) Seconds INR 0.9 (0.9-1.1) APTT 24 (21-31) Seconds PTT Ratio 0.9 Fibrinogen 553 H (184-400) mg/dl Sodium 136 (136-145) mmol/L Potassium 4.1 (3.5-5.1) mmol/L Chloride 108 H (98-107) mmol/L Carbon Dioxide 20 L (21-32) mmol/L Anion Gap 8 (3-11) BUN 22 (6-23) mg/dl Creatinine 0.50 L (0.6-1.2) mg/dl Est Cr Clr Drug Dosing 180.7 ml/min eGFR 129.32 BUN/Creatinine Ratio 44.0 H (10-20) Glucose 75 (70-99(Fasting)) mg/dl Calcium 8.7 (8.6-10.3) mg/dl Total Bilirubin 0.3 (0.2-1.0) mg/dl AST 14 (13-39) U/L ALT 17 (7-52) U/L Alkaline Phosphatase 210 H (34-104) U/L Total Protein 6.2 (6.0-8.3) gm/dl Albumin 3.3 L (3.4-5.0) gm/dl Globulin 2.9 (2.5-4.0) gm/dl Albumin/Globulin Ratio 1.1 (0.9-2) Ur Random Creatinine 75.5 mg/dl U Random Total Protein 61.7 H (0-11.9) mg/dl Protein/Creatinin Ratio 0.8 H (0-0.2) Amniotic Protein POS Treponema pallidum Ab Negative (Negative) Blood Type A Positive Blood Type Recheck Antibody Screen NEGATIVE Crossmatch See Detail 12/26/24 12/27/24 12/27/24 Range/Units 06:11 06:50 15:05 WBC 17.31 H 21.83 H (4.8-10.8) K/ul RBC 2.86 L 3.16 L (4.20-5.40) M/uL Hgb 7.3 L 6.6 L* 8.3 L (12.0-16.0) g/dl Hct 22.3 L 20.4 L* 25.5 L (37.0-47.0) % MCV 78.0 L 80.7 (80.0-100.0) fL MCH 25.5 26.3 (25.0-34.0) pg MCHC 32.7 32.5 (32.0-36.0) g/dL RDW Std Deviation 42.6 45.2 (36.4-46.3) fL RDW Coeff of Selina 15.1 H 15.5 H (11.5-14.5) % Plt Count 236 300 (130-400) K/uL MPV 11.2 10.6 (9.4-12.4) fL Immature Gran % (Auto) % Neut % (Auto) % Lymph % (Auto) % [place] % (Auto) % Eos % (Auto) % Baso % (Auto) % Neut # (Auto) (1.40-6.50) K/uL Lymph # (Auto) (1.20-3.40) K/uL [place] # (Auto) (0.11-0.59) K/uL Eos # (Auto) (0.00-0.50) K/uL Baso # (Auto) (0.00-0.20) K/uL Immature Gran # (Auto) (0.01-0.20) K/uL Absolute Nucleated RBC 0.02 0.06 (0.00-0.12) K/uL Nucleated RBC % (auto) 0.1 0.3 % Hypochromasia PT (9.0-12.0) Seconds INR (0.9-1.1) APTT (21-31) Seconds PTT Ratio Fibrinogen (184-400) mg/dl Sodium (136-145) mmol/L Potassium (3.5-5.1) mmol/L Chloride (98-107) mmol/L Carbon Dioxide (21-32) mmol/L Anion Gap (3-11) BUN (6-23) mg/dl Creatinine (0.6-1.2) mg/dl Est Cr Clr Drug Dosing ml/min eGFR BUN/Creatinine Ratio (10-20) Glucose (70-99(Fasting)) mg/dl Calcium (8.6-10.3) mg/dl Total Bilirubin (0.2-1.0) mg/dl AST (13-39) U/L ALT (7-52) U/L Alkaline Phosphatase (34-104) U/L Total Protein (6.0-8.3) gm/dl Albumin (3.4-5.0) gm/dl Globulin (2.5-4.0) gm/dl Albumin/Globulin Ratio (0.9-2) Ur Random Creatinine mg/dl U Random Total Protein (0-11.9) mg/dl Protein/Creatinin Ratio (0-0.2) Amniotic Protein Treponema pallidum Ab (Negative) Blood Type Blood Type Recheck A Positive Antibody Screen Crossmatch 12/28/24 Range/Units 05:51 WBC 16.92 H (4.8-10.8) K/ul RBC 2.80 L (4.20-5.40) M/uL Hgb 7.3 L (12.0-16.0) g/dl Hct 22.8 L (37.0-47.0) % MCV 81.4 (80.0-100.0) fL MCH 26.1 (25.0-34.0) pg MCHC 32.0 (32.0-36.0) g/dL RDW Std Deviation 45.5 (36.4-46.3) fL RDW Coeff of Selina 15.6 H (11.5-14.5) % Plt Count 286 (130-400) K/uL MPV 10.6 (9.4-12.4) fL Immature Gran % (Auto) 5.3 % Neut % (Auto) 66.8 % Lymph % (Auto) 20.5 % [place] % (Auto) 5.6 % Eos % (Auto) 1.2 % Baso % (Auto) 0.6 % Neut # (Auto) 11.31 H (1.40-6.50) K/uL Lymph # (Auto) 3.47 H (1.20-3.40) K/uL [place] # (Auto) 0.95 H (0.11-0.59) K/uL Eos # (Auto) 0.20 (0.00-0.50) K/uL Baso # (Auto) 0.10 (0.00-0.20) K/uL Immature Gran # (Auto) 0.89 H (0.01-0.20) K/uL Absolute Nucleated RBC 0.08 (0.00-0.12) K/uL Nucleated RBC % (auto) 0.5 % Hypochromasia Present PT (9.0-12.0) Seconds INR (0.9-1.1) APTT (21-31) Seconds PTT Ratio Fibrinogen (184-400) mg/dl Sodium (136-145) mmol/L Potassium (3.5-5.1) mmol/L Chloride (98-107) mmol/L Carbon Dioxide (21-32) mmol/L Anion Gap (3-11) BUN (6-23) mg/dl Creatinine (0.6-1.2) mg/dl Est Cr Clr Drug Dosing ml/min eGFR BUN/Creatinine Ratio (10-20) Glucose (70-99(Fasting)) mg/dl Calcium (8.6-10.3) mg/dl Total Bilirubin (0.2-1.0) mg/dl AST (13-39) U/L ALT (7-52) U/L Alkaline Phosphatase (34-104) U/L Total Protein (6.0-8.3) gm/dl Albumin (3.4-5.0) gm/dl Globulin (2.5-4.0) gm/dl Albumin/Globulin Ratio (0.9-2) Ur Random Creatinine mg/dl U Random Total Protein (0-11.9) mg/dl Protein/Creatinin Ratio (0-0.2) Amniotic Protein Treponema pallidum Ab (Negative) Blood Type Blood Type Recheck Antibody Screen Crossmatch PE: General: Alert, orientedx3, NAD Abd: soft, NT, fundus firm, below Umbilicus Perineum intact, Lochia rubra minimal Ext; NT, no edema AP: 29 yo s/p , ppd# 3, VSS Afebrile doing well anemic, s/p 1 unit of PRBC yesterday now Hb 7.2, asymptomatic HT since admission, on control with Labetalol Continue routine care All questions were answered D/C home with oral iron and PNV, Labetalol Results & Data Vital Signs (Past 12 Hours) Vital Signs Temp Pulse Resp BP Pulse Ox O2 Del Method 12/28/24 05:49 81 154/97 H 12/28/24 02:40 137/82 12/28/24 01:44 147/39 H 12/27/24 23:15 36.8 C 87 18 141/91 H 98 Room Air 12/27/24 22:09 88 147/93 H
[2024-12-28 09:26] VITALS: BP 134/85; PULSE 77; TEMP 97.5
== END 2024-12-28 10:50 | disposition home or self-care (01) | DRG 807 ==
LOC: OPB 08:22 → 4S1 08:28 → 4E2 23:52